=== PATIENT | male | born 1945 | race Caucasian/White ===

== ENCOUNTER → 2017-02-21 | Outpatient (CLI) | payer OTHER | END | disposition home or self-care (01) | LOC: C.LABMFLN 15:34 | PROVIDERS: ATTEND Family Medicine | DX: M81.0 Age-related osteoporosis without current pathological fracture (principal) ==

== ENCOUNTER → 2017-03-25 | Outpatient (CLI) | payer OTHER ==
[2017-03-25 18:14] LABS: HEMATOCRIT 29.1 % (42-52)
== END | disposition home or self-care (01) ==
LOC: C.LABMFLN 16:20
PROVIDERS: ATTEND Family Medicine
DX: D50.9 Iron deficiency anemia, unspecified (principal)

== ENCOUNTER → 2017-03-26 | Outpatient (CLI) | payer OTHER | END | disposition home or self-care (01) | LOC: C.LABMFLN 10:47 | PROVIDERS: ATTEND Family Medicine | DX: D50.9 Iron deficiency anemia, unspecified (principal) ==

== ENCOUNTER → 2017-04-09 | Outpatient (CLI) | payer OTHER ==
[2017-04-09 18:06] LABS: HEMATOCRIT 34.2 % (42-52)
[2017-04-09 18:31] LABS: ALT/SGPT 21 U/L (12-78); CHOLESTEROL 102 mg/dl (0-200); CHOLESTEROL/HDL RATIO 2.2; HDL CHOLESTEROL 47 mg/dl; TRIGLYCERIDES 57 mg/dl (0-150); VERY LOW DENSITY LIPOPROT CALC 11 mg/dl
== END | disposition home or self-care (01) ==
LOC: C.LABMFLN 15:31
PROVIDERS: ATTEND Family Medicine
DX: D64.9 Anemia, unspecified (principal); I25.10 Atherosclerotic heart disease of native coronary artery without angina pectoris

== ENCOUNTER → 2017-09-17 | Outpatient (CLI) | payer OTHER ==
[2017-09-17 17:59] LABS: HEMATOCRIT 40.3 % (42-52); HEMOGLOBIN 12.9 g/dL (14.0-18.0)
[2017-09-17 18:21] LABS: TRANSFERRIN 354 mg/dl (200-360)
== END | disposition home or self-care (01) ==
LOC: C.LABMFLN 15:31
PROVIDERS: ATTEND Family Medicine
DX: E55.9 Vitamin D deficiency, unspecified (principal); D64.9 Anemia, unspecified; R35.0 Frequency of micturition

== ENCOUNTER 2019-05-25 05:58 | Inpatient (IN) ==
--- NOTE | 2019-03-25 15:24 | Anesthesiology Consultation ---
Date of Service March 25, 2019 Assessment & Plan (1) Encounter for pre-operative examination: - Cardio: 03/30/19: "He is having no angina or heart failure symptoms. At this point time I see no cardiac contraindication for surgery." - Thoracic Medicine: 02/24/19: "Patient is breathing at baseline." Continue pulmonary rehab. Stable mediastinal lymphadenopathy. Continued on same regimen. F/U 8 months. - PCP: 03/23/19: He is an intermediate risk for pulmonary complications based on the ARISCAT preoperative pulmonary risk index. He is participating in pulmonary rehabilitation with improvement in functional status." Per verbal from PCP (RADHA Sorensen): 03/25/19: recommend cardiology and pulmonary clearance prior to surgery. Surgeon office aware/will postpone surgery until 04/27/19 so that these can be obtained. Chart Review Chart Review: Acceptable Risk for Surgery (pending PCP-ordered pulmonary/thoracic med clearance scheduled 04/07 ([facility])) and Patient NOT seen in Pre Admission Testing History Surgery Operation Date: 04/27/19 10:25 Proposed Procedures p C3-C5 Anterior Cervical Discetomy and Fusion, C6 Corpectomy, Spinal Cord Monitoring - Sunday Torres, DO Height/Weight Height: 5 ft 7 in Weight: 61.235 kg Allergies Allergy/AdvReac Type Severity Reaction Status Date / Time montelukast [From Singulair] Allergy GETS URI Verified 03/23/19 15:00 Medications Home Medications Medication Instructions Recorded Confirmed Last Taken hydroxyzine HCl 25 mg tablet 25 mg PO HS #30 tab 02/05/19 03/23/19 Unknown albuterol sulfate 2.5 mg/3 mL 2.5 mg INH Q4H PRN #180 ml 03/03/19 03/23/19 Unknown (0.083 %) solution for nebulization albuterol sulfate HFA 90 2 puffs INH Q6H PRN #18 gm 03/03/19 03/23/19 Unknown mcg/actuation aerosol inhaler budesonide-formoterol HFA 160 2 puffs INH BID #10.2 gm 03/03/19 03/23/19 Unknown mcg-4.5 mcg/actuation aerosol inhaler nitroglycerin 0.4 mg sublingual 0.4 mg SL Q5M PRN #25 tab 03/03/19 03/23/19 Unknown tablet aspirin [Adult Low Dose Aspirin] 81 mg PO QAM 03/23/19 03/23/19 Unknown atorvastatin 80 mg PO DAILY 03/23/19 03/23/19 Unknown meclizine 25 mg PO TID PRN 03/23/19 03/23/19 Unknown metoprolol succinate 25 mg PO QAM 03/23/19 03/23/19 Unknown omeprazole 40 mg PO QAM 03/23/19 03/23/19 Unknown umeclidinium [Incruse Ellipta] 1 puffs INH QAM 03/23/19 03/23/19 Unknown zafirlukast 20 mg PO BIDM 03/23/19 03/23/19 Unknown Past Medical History Medical History Chronic lymphocytic leukemia chronic leukocytosis (baseline WBC 20-30 range per chart review) Anemia chronic; baseline hgb 10-11 range per chart review Asthma CAD (coronary artery disease) stents x 2 (2017) Cervical disc disease Chronic obstructive pulmonary disease Emphysema of lung GERD (gastroesophageal reflux disease) History of GI bleed History of kidney stones Hx of myocardial infarction 2017- stents x 2 Hyperlipidemia Nocturnal hypoxemia 2L O2 HS Past Surgical History Surgical History History of cardiac cath 2017- stents x 2 History of carpal tunnel surgery of left wrist History of carpal tunnel surgery of right wrist History of colonoscopy History of dental surgery History of esophagogastroduodenoscopy (EGD) History of laparoscopic cholecystectomy History of thumb surgery History of umbilical hernia repair Hx of elbow surgery LEFT Social History Smoking Status: Former smoker Do You Dip or Chew Tobacco: Yes (1 CAN) Smoking End Date: 25 YR AGO Hx Alcohol Use: No Hx Substance Use: No Testing Laboratory Results 03/24/19 WBC 32.96 (hx CLL with chronic leukocytosis with baseline 20-30 range per chart review; surgeon aware) H/H 11.0/35.6 PLATELETS 222 SODIUM 141 POTASSIUM 4.3 CHLORIDE 102 CO2 28 BUN 12 CREATININE 1.2 GLUCOSE 94 PT 14.2 INR 1.10 UA small esterase, + WBC, negative bacteria Electrocardiogram Date: 03/24/19 NSR at 85bpm. LAD. iRBBB. No significant change compared to 03/2018 per cardio. Chest X-Ray Date: 03/24/19 Stigmata of severe COPD without acute findings. Echocardiogram Date: 03/06/17 LVEF 40-44%. Mild diffuse LV HK. Grade I DD. No significant valvular disease. Stress Test Date: 04/18/17 Type: nuclear (Lexiscan) EF 55% (post-stress). RCA territory infarct. Normal pharmacologic stress EKG. No noted stress induced ischemia. 69% MPHR. Cardiac Catheterization Date: 03/04/17 Successful PCI of the RCA using PTCA and RIAN. 70% LAD stenosis. LVEF 30%.
[~2019-05-25 05:58] MED LIST: CEFAZOLIN 1000MG 1,000 MG/7.5 ML SYR IV SCH; LR 15ML/HR IV SCH; SODIUM CHLORIDE 0.9% 250 ML IV PRN
[2019-05-25] MEDS ORDERED: LR 15ML/HR IV SCH (06:00)
[2019-05-25] MEDS ORDERED: CEFAZOLIN 1000MG 1,000 MG/7.5 ML SYR IV SCH (06:00)
[2019-05-25] MEDS ORDERED: BACITRACIN INJ 50,000 UNIT VIAL ONE (06:57)
[2019-05-25] MEDS ORDERED: ATROPINE SULFATE 0.1 MG/ML 10ML SYR IV PRN ×2 (07:02→07:39)
[2019-05-25] MEDS ORDERED: ONDANSETRON INJ 2 MG/ML 2 ML VIAL IV PRN ×3 (07:02→11:53)
[2019-05-25] MEDS ORDERED: fentaNYL citrate 100 MCG/2 ML VIAL IV PRN ×2 (07:02→07:39)
[2019-05-25] MEDS ORDERED: ePHEDrine sulfate 50 MG/ML AMP IV PRN ×2 (07:02→07:39)
[2019-05-25] MEDS ORDERED: HYDROmorphone INJ 1 MG/ML SYRINGE IV PRN ×2 (07:02→07:39)
[2019-05-25] MEDS ORDERED: ALBUT/IPRATROP 3MG/0.5MG NEB 3 ML VIAL INH STA (07:06)
[2019-05-25] MEDS ORDERED: MIDAZOLAM HCL 1 MG/ML 2ML VIAL ONE (07:22)
[2019-05-25] MEDS ORDERED: SUCCINYLCHOLINE CHLORIDE 20 MG/ML 10 ML VIAL ONE (07:22)
[2019-05-25] MEDS ORDERED: ePHEDrine sulfate 50 MG/ML AMP ONE (07:22)
[2019-05-25] MEDS ORDERED: LIDOCAINE HCL 2% 2 ML VIAL/AMP(20MG/ML) INFIL ONE (07:22)
[2019-05-25] MEDS ORDERED: PROPOFOL IV EMULSION 10 MG/ML 20 ML VIAL IV ONE (07:22)
[2019-05-25] MEDS ORDERED: GLYCOPYRROLATE 0.2 MG/ML VIAL ONE (07:22)
[2019-05-25] MEDS ORDERED: DEXAMETHASONE SOD INJ 4 MG/ML VIAL ONE (07:22)
[2019-05-25] MEDS ORDERED: PHENYLEPHRINE HCL 10 MG/ML VIAL ONE (07:22)
[2019-05-25] MEDS ORDERED: ONDANSETRON INJ 2 MG/ML 2 ML VIAL ONE (07:22)
[2019-05-25] MEDS ORDERED: fentaNYL citrate 100 MCG/2 ML VIAL ONE (07:22)
[2019-05-25] MEDS ORDERED: NEOSTIGMINE METHYLSULFATE 1 MG/ML 10ML VIAL ONE (07:22)
--- NOTE | 2019-05-25 07:30 | History & Physical Bridge Note ---
Date of Service May 25, 2019 History & Physical Bridge Note I have examined the patient, reviewed the History & Physical and in the interval since the performance of the History & Physical I have noted the following changes of clinical significance: no changes noted
--- NOTE | 2019-05-25 07:31 | History & Physical Report ---
Date of Service May 25, 2019 Assessment & Plan (1) Cervical stenosis of spinal canal: Anterior cervical discectomy and fusion C3-C5 with C6 corpectomy Present on Admission?: Yes History of Present Illness Chief Complaint: Neck and arm pain Primary Care Provider: Bjorn Sutherland MD This is a 73-year-old male who presents with chronic persistent neck and arm pain. After failing extensive course of nonoperative care is here for surgical intervention. Allergies Allergy/AdvReac Type Severity Reaction Status Date / Time montelukast [From Singulair] Allergy GETS URI Verified 05/25/19 06:34 Home Medications Home Medications Medication Instructions Recorded Confirmed Type hydroxyzine HCl 25 mg tablet 25 mg PO HS #30 tab 02/05/19 05/25/19 Rx albuterol sulfate 2.5 mg/3 mL 2.5 mg INH Q4H PRN #180 ml 03/03/19 05/25/19 Rx (0.083 %) solution for nebulization budesonide-formoterol HFA 160 2 puffs INH BID #10.2 gm 03/03/19 05/25/19 Rx mcg-4.5 mcg/actuation aerosol inhaler nitroglycerin 0.4 mg sublingual 0.4 mg SL Q5M PRN #25 tab 03/03/19 05/25/19 Rx tablet aspirin [Adult Low Dose Aspirin] 81 mg PO QAM 03/23/19 05/25/19 History atorvastatin 80 mg PO DAILY 03/23/19 05/25/19 History meclizine 25 mg PO TID PRN 03/23/19 05/25/19 History metoprolol succinate 25 mg PO QAM 03/23/19 05/25/19 History umeclidinium [Incruse Ellipta] 1 puffs INH QAM 03/23/19 05/25/19 History zafirlukast [Accolate] 20 mg PO BIDM 03/23/19 05/25/19 History benzonatate 100 mg capsule 100 mg PO TID PRN #30 cap 05/18/19 05/25/19 Rx omeprazole 40 mg capsule,delayed 40 mg PO QAM 05/20/19 05/25/19 History release albuterol sulfate [Ventolin HFA] 2 puff INHALATION Q4H PRN 05/21/19 05/25/19 History azithromycin [Zithromax Z-Jose] 250 mg PO UD 05/21/19 05/25/19 History prednisone 10 mg tablet 10 mg PO DAILY #14 tab 05/21/19 05/25/19 Rx Past Med/Surg History Social History Preferred Language: Tuvaluan Communication Ability: Effective Developmental Education Instructor Required: No Beliefs That Will Affect Care: None Current Living Situation: Family Feels Safe at Home: Yes Safety Concerns: Feels Safe At This Time Smoking Status: Former smoker Do You Dip or Chew Tobacco: Yes (1 CAN) ; Smoking End Date: 25 YR AGO ; Second Hand Exposure: Yes (DAILY) ; Tobacco Cessation Education Requested by Patient: No Hx Alcohol Use: No Hx Substance Use: No Physical Exam Physical Exam: Patient is alert and oriented neurologically intact. Results & Data Vital Signs (Past 12 Hours) Vital Signs Temp Pulse Resp BP Pulse Ox 05/25/19 06:41 37 C 75 20 134/84 100
[2019-05-25] MEDS ORDERED: LABETALOL HCL IV 5 MG/ML 20ML IV PRN (07:39)
[2019-05-25] MEDS ORDERED: ALBUT/IPRATROP 3MG/0.5MG NEB 3 ML VIAL INH PRN (07:39)
[2019-05-25] MEDS ORDERED: HYDROmorphone INJ 2 MG/ML SYR/VIAL ONE (08:46)
[2019-05-25] MEDS ORDERED: FLOSEAL HEMOSTATIC MATRIX 10ML TOP ONE (08:49)
--- NOTE | 2019-05-25 10:00 | Operative Report ---
Post Operative Report Pre & Post Diagnosis Operation Date: 05/25/19 07:45 Pre-Op Diagnosis: Cervical spinal stenosis with myeloradiculopathy Post-Op Diagnosis: Same Procedure Operation Date: 05/25/19 07:45 Actual Procedures #1 anterior cervical discectomy with bilateral foraminotomies C3-4. #2 anterior cervical corpectomy with bilateral foraminotomies see 5. #3 anterior cervical arthrodesis C3-C4 and C4-C6. #4 placement of peek cage 7 mm in height C3-C4 and 25 mm in height at C4-C6 #5 placement of cornelius plate and screws from C3 to see 6. #6 placement of locally harvested morselized autograft combined with DBM and interbody cages. Surgeon Sunday Torres DO Vulcanizing Press Operator Sabrina Galindo Estimated Blood Loss 10 Findings Consistent with Post-Op Diagnosis Specimens None Indications This is a 73-year-old male who has presented with significant cervical spinal stenosis and after failing extensive course of nonoperative care elected to undergo the above-mentioned procedure. Description of Procedure Patient was met with identified and informed consent obtained. Patient was then taken to the operative suite underwent intubation placed in supine position on the Nicolas table with head Desai hogshead opener. All bony prominences well- padded eyes inspected to ensure no external pressure placed upon the peer at this point the anterior cervical spine was prepped and draped in normal sterile fashion. With the assistance of fluoroscopy identified the C3 to see 6 disc space and a longitudinal incision was placed along the right anterior aspect of the cervical spine. Sharp dissection with the assistance of bipolar electrocautery was performed down to and exposing the anterior cervical spine f rom C3-C6. Then performed a complete discectomy of C4-5 out to the uncovertebral joints bilaterally followed by C5-6. [place] distracting pins were then placed in C4 and C6 to distract across the C5 vertebral body. A complete corpectomy of C5 was then performed including removal of all posterior annular fibers longitudinal ligament and spurs. The endplates were then burred to subcortical being bone and a 25 mm peek cage filled with locally harvested morselized autograft combined with DBM was tapped in position. Then proceeded to see 3 4. Again complete discectomy performed out to the operative joints bilaterally. I removed all posterior annular fibers and longitudinal ligament. Endplates were then burred to subcortical bleeding bone and a 7 mm peek cage filled with ostium bone graft tapped in position. All distraction apparatus was removed and anterior osteophytes burred with smooth cortical surface. A cornelius plate and screws was then applied with the assistance of fluoroscopy. The incision was then copiously irrigated explored to ensure no damage to surrounding structures remaining bleeding. 10 round ALAN drain inserted. The incision was then closed with 2 Vicryl in the fashion of 4 Monocryl for final skin closure. Steri-Strip sterile dressings placed. Patient will continue to PACU stable condition. Please note Sabrina Galindo present all the entire procedure involved the patient positioning complex portions of the surgery and final skin closure. Lastly spinal cord monitoring was utilized that the procedure no changes noted. I attest to the content of the Intraoperative Record and any orders documented therein. Any exceptions are noted below.
--- NOTE | 2019-05-25 10:37 | Fluoroscopy Report ---
FL cervical 2-3V CLINICAL HISTORY: C3-C5 FUSION, C6 CORPECTOMY COMPARISON STUDY: None FLUOROSCOPY TIME: 12 seconds. NUMBER OF FLUOROSCOPIC IMAGES: 2 FINDINGS: 2 intraoperative fluoroscopic spot images are provided for interpretation. There are postsu rgical changes of a C3-4 discectomy and interbody fusion. There are postsurgical changes of a C5-6 co rpectomy. There is anterior metallic plate extending from the C3 to the C7 level with screws at the C 3, C4, and C7 levels. IMPRESSION: Intraoperative fluoroscopic spot images as described above. Electronically signed by: Jayden Harding M.D. 05/25/2019 10:35 AM
[2019-05-25] MEDS ORDERED: RACEPINEPHRINE 2.25% NEBU SOLN 0.5 ML VIAL INH PRN (11:53)
[2019-05-25] MEDS ORDERED: BENZONATATE 100 MG CAPSULE PO PRN (11:53)
[2019-05-25] MEDS ORDERED: ACETAMINOPHEN 1,000 MG/100 ML VIAL IV PRN (11:53)
[2019-05-25] MEDS ORDERED: NALOXONE HCL 0.4 MG/1 ML VIAL/CARP IV PRN (11:53)
[2019-05-25] MEDS ORDERED: NITROGLYCERIN SL 0.4 MG/TAB TAB SL PRN (11:53)
[2019-05-25] MEDS ORDERED: MAGNESIUM HYDROXIDE SUSP 30 ML UDC PO PRN (11:53)
[2019-05-25] MEDS ORDERED: PROMETHAZINE HCL 12.5 MG in SODIUM CHLORIDE 0.9% 50 ML IV PRN (11:53)
[2019-05-25] MEDS ORDERED: FAMOTIDINE 20 MG TAB PO PRN (11:53)
[2019-05-25] MEDS ORDERED: ALUMINUM/MAGNESIUM SUSP 30 ML UDC PO PRN (11:53)
[2019-05-25] MEDS ORDERED: LORazepam 0.5 MG/1 ML VIAL IV PRN (11:53)
[2019-05-25] MEDS ORDERED: LORazepam 0.5 MG TAB PO PRN (11:53)
[2019-05-25] MEDS ORDERED: TRAMADOL HCL 50 MG TABLET PO PRN (11:53)
[2019-05-25] MEDS ORDERED: ALBUTEROL 0.083% NEBU SOLN 3 ML VIAL INH PRN (11:53)
[2019-05-25] MEDS ORDERED: DEXAMETHASONE SOD PHOSPHATE 8 MG in SYRINGE 0 ML IV PRN (11:53)
[2019-05-25] MEDS ORDERED: OXYCODONE HCL IR 5 MG TAB (IMMEDIATE RELEASE) PO PRN (11:53)
[2019-05-25] MEDS ORDERED: ONDANSETRON 4 MG TAB PO PRN (11:53)
[2019-05-25] MEDS ORDERED: ACETAMINOPHEN 500 MG TAB PO PRN (11:53)
[2019-05-25] MEDS ORDERED: METOCLOPRAMIDE HCL INJ 5 MG/ML 2 ML VIAL IV PRN (11:53)
[2019-05-25] MEDS ORDERED: SOD PHOSPHATE/SOD BIPHOSPHATE ENEMA 132 ML BTL PR PRN (11:53)
[2019-05-25] MEDS ORDERED: HYDROmorphone INJ 0.5 MG/0.5 ML SYR IV PRN (11:53)
[2019-05-25] MEDS ORDERED: ALBUTEROL HFA 8 GM INHALER INH PRN (11:53)
[2019-05-25] MEDS ORDERED: DO NOT ADMINISTER FLU VACCINE PRN (11:53)
[2019-05-25] MEDS ORDERED: DO NOT ADMINISTER PNEUMOCOCCAL VACCINE PRN (11:53)
[2019-05-25] MEDS ORDERED: MECLIZINE HCL 25 MG TAB PO PRN (11:53)
[2019-05-25] MEDS ORDERED: ALBUT/IPRATROP 3MG/0.5MG NEB 3 ML VIAL INH ONE (12:30)
--- NOTE | 2019-05-25 14:31 | Anesthesiology Progress Note ---
Date of Service May 25, 2019 Anesthesia Post Procedure Vital Signs Vital Signs: Temp Pulse Pulse Pulse Resp BP Pulse Ox 05/25/19 14:19 80 16 129/76 98 05/25/19 13:48 70 18 95 05/25/19 13:35 36.7 C 68 16 122/76 92 05/25/19 12:43 85 16 130/69 95 05/25/19 12:36 68 18 129/70 96 05/25/19 12:15 83 18 97 05/25/19 12:12 73 18 132/72 97 05/25/19 12:10 73 18 132/72 97 05/25/19 11:40 36.7 C 78 14 129/74 95 05/25/19 11:10 36.7 C 75 12 132/78 94 05/25/19 11:00 75 12 134/75 95 05/25/19 10:50 80 12 132/74 96 05/25/19 10:40 79 12 134/74 100 05/25/19 10:30 74 12 136/69 100 05/25/19 10:20 74 16 127/64 100 05/25/19 10:13 36.0 C L 83 18 139/66 100 05/25/19 07:40 73 16 93 05/25/19 06:41 37 C 75 20 134/84 100 Pulse Ox 05/25/19 14:19 05/25/19 13:48 05/25/19 13:35 05/25/19 12:43 05/25/19 12:36 05/25/19 12:15 05/25/19 12:12 05/25/19 12:10 05/25/19 11:40 95 05/25/19 11:10 05/25/19 11:00 05/25/19 10:50 05/25/19 10:40 05/25/19 10:30 05/25/19 10:20 05/25/19 10:13 05/25/19 07:40 05/25/19 06:41 Pain Intensity Neck: Pain Intensity: 3 Transfer of Care Handoff Completed per policy Notes Mental Status: alert / awake / arousable and participated in evaluation Patient Amnestic to Procedure: Yes Nausea / Vomiting: adequately controlled Pain: adequately controlled Airway Patency, RR, SpO2: stable & adequate BP & HR: stable & adequate Hydration State: stable & adequate Anesthetic Complications: no major complications apparent and Pt Satisfied with anesthetic care
[2019-05-25] MEDS: DEXAMETHASONE SOD PHOSPHATE 6 MG in SYRINGE 0 ML IV SCH ×2 (15:37→23:54)
[2019-05-25] MEDS: CEFAZOLIN 1000MG 1,000 MG/7.5 ML SYR IV SCH ×2 (15:37→23:53)
[2019-05-25] MEDS: SODIUM CHLORIDE 0.9% 1000ML 1,000 ML IV SCH (16:44)
[2019-05-25] MEDS: BUDESONIDE/FORMOTEROL FUMARATE 160/4.5 60 PUFFS/INHALER INH SCH (20:38)
[2019-05-25] MEDS ORDERED: DOCUSATE SODIUM/SENNA 50/8.6MG TAB PO SCH (21:00)
--- NOTE | 2019-05-25 21:59 | Hospitalist Consultation ---
Date of Consultation May 25, 2019 Assessment & Plan (1) Cervical stenosis of spinal canal: s/p C3-C6 anterior cervical diskectomy and fusion performed by Dr. Torres today. Surgery was well tolerated, no complications identified. Patient is feeling well. Pain fairly well controlled. No nausea. Neurovascularly intact with c-collar in place. -Pain, nausea and bowel regimen per primary team -Dexamethasone -Cefazolin -Activity instruction per primary team. Present on Admission?: Yes (2) Pulmonary emphysema: Adequate oxygenation on room air. No respiratory distress, coughing or wheezing. Lungs CTA. -Prednisone 10mg po daily -Continue Albuterol PRN - will change to nebulized formulation while inpatient -Continue Symbicort (Budesonide/Formoterol) 2 puffs BID -Continue Benzonatate TID PRN -DuoNeb q 4 hours PRN Present on Admission?: Yes (3) Chronic lymphocytic leukemia: Chronic. Stable. Baseline WBC 20-30 -Labs in AM Present on Admission?: Yes (4) Anemia: Chronic. Stable. Minimal blood loss during operation -CBC in AM Present on Admission?: Yes (5) Acid reflux disease: Chronic. Stable. Patient with no complaints at present. -Protonix 40mg po daily -Pepcid 20mg po BID Present on Admission?: Yes (6) CAD (coronary artery disease): Chronic. Stable. No complaints of chest pain. -Nitro PRN -Metoprolol 25mg po q AM -Continue Atorvastatin 80mg po daiy -Continue ASA 81mg po daily at discretion of primary team Thank you for this consult. Please do not hesitate to contact us with additional questions or concerns Hospitalist team will continue to follow along with you. Present on Admission?: Yes History of Present Illness Reason for Consultation: post-operative medical management Requesting Physician: Dr. Torres Attending Physician: Sunday Torres, DO History of Present Illness Mr. Prince is a pleasant 73yo C male with history of COPD/Emphysema, CAD s/p [place], GERD, CLL s/p C3-C6 anterior cervical diskectomy and fusion perfomed by Dr. Torres today. Surgery was well tolerated, no complications identified. Patient presently in mild pain. Denies nausea, numbness, tingling or weakness. He ate liquid dinner without complication. Some mild discomfort with swallowing. Denies CP, SOB, cough or wheeze. No additional complaints at this time Allergies Allergy/AdvReac Type Severity Reaction Status Date / Time montelukast [From [facility]] Allergy GETS URI Verified 05/25/19 06:34 Home Medications Home Medications Medication Instructions Recorded Confirmed Type hydroxyzine HCl 25 mg tablet 25 mg PO HS #30 tab 02/05/19 05/25/19 Rx albuterol sulfate 2.5 mg/3 mL 2.5 mg INH Q4H PRN #180 ml 03/03/19 05/25/19 Rx (0.083 %) solution for nebulization budesonide-formoterol HFA 160 2 puffs INH BID #10.2 gm 03/03/19 05/25/19 Rx mcg-4.5 mcg/actuation aerosol inhaler nitroglycerin 0.4 mg sublingual 0.4 mg SL Q5M PRN #25 tab 03/03/19 05/25/19 Rx tablet aspirin [Adult Low Dose Aspirin] 81 mg PO QAM 03/23/19 05/25/19 History atorvastatin 80 mg PO DAILY 03/23/19 05/25/19 History meclizine 25 mg PO TID PRN 03/23/19 05/25/19 History metoprolol succinate 25 mg PO QAM 03/23/19 05/25/19 History umeclidinium [Incruse Ellipta] 1 puffs INH QAM 03/23/19 05/25/19 History zafirlukast [Accolate] 20 mg PO BIDM 03/23/19 05/25/19 History benzonatate 100 mg capsule 100 mg PO TID PRN #30 cap 05/18/19 05/25/19 Rx omeprazole 40 mg capsule,delayed 40 mg PO QAM 05/20/19 05/25/19 History release albuterol sulfate [Ventolin HFA] 2 puff INHALATION Q4H PRN 05/21/19 05/25/19 History azithromycin [Zithromax Z-Jose] 250 mg PO UD 05/21/19 05/25/19 History prednisone 10 mg tablet 10 mg PO DAILY #14 tab 05/21/19 05/25/19 Rx oxycodone 5 mg PO Q4H PRN #20 tab 05/25/19 Rx tramadol 50 mg PO Q4H PRN #20 tab 05/25/19 Rx Patient History Social History Preferred Language: Occitan Communication Ability: Effective Planograph Operator Required: No Beliefs That Will Affect Care: None Current Living Situation: Family Feels Safe at Home: Yes Safety Concerns: Feels Safe At This Time Smoking Status: Former smoker Do You Dip or Chew Tobacco: Yes (1 CAN) ; Smoking End Date: 25 YR AGO ; Second Hand Exposure: Yes (DAILY) ; Tobacco Cessation Education Requested by Patient: No Hx Alcohol Use: No Hx Substance Use: No Review of Systems Review of Systems: All systems reviewed & are unremarkable except as noted in HPI & below Physical Exam Physical Exam: General: patient resting comfortably, NAD, non-toxic in ap pearance, AA&O x 4 Skin: warm, dry, no rashes or lesions HEENT: NC/AT, PERRL, EOMI, anicteric sclera, conjunctiva without injection, external ear normal to inspection and nontender, nares patent, moist mucus membranes, dentition intact, no oropharyngeal lesions, neck supple, trachea midline, no LAD, no thyromegaly, no JVD Heart: +S1/S2, regular, no m/r/g Lungs: equal air entry bilaterally, no rales/rhonchi/wheezes Abd: +BS, soft, NT/ND, no masses/organomegaly/ascites Ext: warm, 2+ pulses in UE/LE bilaterally, no clubbing/cyanosis or edema Neuro: nonfocal, patient AA&O x 4, speech intact, no facial droop, moving all extremities on command with equal strength 5/5 Results & Data Vital Signs (Past 12 Hours) Vital Signs Temp Pulse Pulse Resp BP Pulse Ox Pulse Ox 05/25/19 20:34 36.4 C L 58 L 16 137/72 98 05/25/19 19:30 72 18 98 05/25/19 18:32 77 16 126/63 96 94 05/25/19 16:40 77 16 129/71 93 05/25/19 15:50 68 18 93 05/25/19 14:19 80 16 129/76 98 05/25/19 13:48 70 18 95 05/25/19 13:35 36.7 C 68 16 122/76 92 05/25/19 12:43 85 16 130/69 95 05/25/19 12:36 68 18 129/70 96 05/25/19 12:15 83 18 97 05/25/19 12:12 73 18 132/72 97 05/25/19 12:10 73 18 132/72 97 05/25/19 11:40 36.7 C 78 14 129/74 95 95 05/25/19 11:10 36.7 C 75 12 132/78 94 05/25/19 11:00 75 12 134/75 95 05/25/19 10:50 80 12 132/74 96 05/25/19 10:40 79 12 134/74 100 05/25/19 10:30 74 12 136/69 100 05/25/19 10:20 74 16 127/64 100 05/25/19 10:13 36.0 C L 83 18 139/66 100 Laboratory Results Lab Results 05/25/19 Range/Units 06:57 Blood Type O Negative Antibody Screen NEGATIVE Crossmatch See Detail Diagnostic Findings [place] cervical 2-3V CLINICAL HISTORY: C3-C5 FUSION, C6 CORPECTOMY COMPARISON STUDY: None FLUOROSCOPY TIME: 12 seconds. NUMBER OF FLUOROSCOPIC IMAGES: 2 FINDINGS: 2 intraoperative fluoroscopic spot images are provided for interpretation. There are postsurgical changes of a C3-4 discectomy and interbody fusion. There are postsurgical changes of a C5-6 corpectomy. There is anterior metallic plate extending from the C3 to the C7 level with screws at the C3, C4, and C7 levels. IMPRESSION: Intraoperative fluoroscopic spot images as described above. Electronically signed by: Jayden Harding M.D. 05/25/2019 10:35 AM Dictated: 05/25/19 1031 Transcribed: 05/25/19 1031 PG Care Time/CCT Total # of Minutes Spent Total Time Spent with Patient: Total time spent is greater than 50% in coordination of care (as documented) at patient's floor/unit and/or counseling patient: (1) Pulmonary emphysema Emphysema type: unspecified Qualified Code(s): J43.9 - Emphysema, unspecified (2) Anemia Anemia type: other cause (3) Acid reflux disease Esophagitis presence: esophagitis presence not specified Qualified Code(s): K21.9 - Gastro-esophageal reflux disease without esophagitis
[2019-05-26] MEDS: SODIUM CHLORIDE 0.9% 1000ML 1,000 ML IV SCH (03:08)
[2019-05-26 06:15] LABS: Hematocrit (blood only) 33.6 % (42-52); Hemoglobin 10.7 g/dL (14.0-18.0); Mean Corpuscular Hgb Conc 31.8 g/dL (32-36); Mean Corpuscular Volume 81.6 fL (80-100); Mean Platelet Volume 8.4 fL (7.4-10.4); Platelet Count 250 K/uL (130-400); RDW Coefficient of Variation 16.8 % (11.5-14.5); RDW Standard Deviation 49.7 fL (36.4-46.3); Red Blood Count 4.12 M/uL (4.7-6.1); White Blood Count 43.84 K/uL (4.8-10.8)
[2019-05-26 06:31] LABS: Basophils # (auto) 0.04 K/uL (0-0.2); Basophils % (auto) 0.1 %; Immature Granulocytes # (auto) 0.27 K/uL (0.00-0.02); Immature Granulocytes % (auto) 0.6 %; Lymphocytes # (auto) 25.32 K/uL (1.2-3.4); Lymphocytes % (auto) 57.8 %; Monocytes # (auto) 1.82 K/uL (0.11-0.59); Monocytes % (auto) 4.2 %; Neutrophils # (auto) 16.39 K/uL (1.4-6.5); Neutrophils % (auto) 37.3 %
[2019-05-26 06:44] LABS: BUN Creatinine Ratio 11.5 (10-20); Calcium 8.4 mg/dl (8.5-10.1); Creatinine Clr Calc Pharmacy 71.4 ml/min; Est GFR (African American) 102.6; Est GFR (Non-African American) 88.5; Potassium 4.2 mmol/L (3.5-5.1)
[2019-05-26] MEDS: DEXAMETHASONE SOD PHOSPHATE 6 MG in SYRINGE 0 ML IV SCH (07:02)
[2019-05-26] MEDS: ALBUT/IPRATROP 3MG/0.5MG NEB 3 ML VIAL NEB PRN ×2 (07:25→11:08)
--- NOTE | 2019-05-26 08:18 | Anesthesiology Progress Note ---
Date of Service May 26, 2019 Anesthesia Post Procedure Vital Signs Vital Signs: Temp Pulse Pulse Resp BP Pulse Ox Pulse Ox 05/26/19 07:27 63 20 89 L 05/26/19 07:11 92 05/26/19 06:50 60 16 93 05/26/19 06:35 36.8 C 76 16 133/74 95 05/26/19 04:40 36.4 C L 66 16 133/75 96 05/26/19 03:42 60 16 95 05/26/19 02:40 36.6 C 69 16 123/77 97 05/26/19 00:40 36.6 C 72 16 123/71 96 05/25/19 23:05 64 18 96 05/25/19 22:40 36.6 C 69 16 121/74 95 05/25/19 20:34 36.4 C L 58 L 16 137/72 98 05/25/19 19:30 72 18 98 05/25/19 18:32 77 16 126/63 96 94 05/25/19 16:40 77 16 129/71 93 05/25/19 15:50 68 18 93 05/25/19 14:19 80 16 129/76 98 05/25/19 13:48 70 18 95 05/25/19 13:35 36.7 C 68 16 122/76 92 05/25/19 12:43 85 16 130/69 95 05/25/19 12:36 68 18 129/70 96 05/25/19 12:15 83 18 97 05/25/19 12:12 73 18 132/72 97 05/25/19 12:10 73 18 132/72 97 05/25/19 11:40 36.7 C 78 14 129/74 95 95 05/25/19 11:10 36.7 C 75 12 132/78 94 05/25/19 11:00 75 12 134/75 95 05/25/19 10:50 80 12 132/74 96 05/25/19 10:40 79 12 134/74 100 05/25/19 10:30 74 12 136/69 100 05/25/19 10:20 74 16 127/64 100 05/25/19 10:13 36.0 C L 83 18 139/66 100 Pain Intensity Neck: Pain Intensity: 4 Notes Mental Status: alert / awake / arousable and participated in evaluation Patient Amnestic to Procedure: Yes Nausea / Vomiting: adequately controlled Pain: adequately controlled Airway Patency, RR, SpO2: stable & adequate BP & HR: stable & adequate Hydration State: stable & adequate Anesthetic Complications: no major complications apparent and Pt Satisfied with anesthetic care
[2019-05-26] MEDS: BUDESONIDE/FORMOTEROL FUMARATE 160/4.5 60 PUFFS/INHALER INH SCH (08:24)
[2019-05-26] MEDS ORDERED: ATORVASTATIN 40 MG TAB PO SCH (09:00)
[2019-05-26] MEDS ORDERED: ASPIRIN 81 MG ECTAB PO SCH (09:00)
[2019-05-26] MEDS ORDERED: METOPROLOL SUCC 25MG EXT REL TAB PO SCH (09:00)
[2019-05-26] MEDS ORDERED: predniSONE 10 MG TABLET PO SCH (09:00)
[2019-05-26] MEDS ORDERED: PANTOprazole 40 MG TAB PO SCH (09:00)
--- NOTE | 2019-05-26 10:37 | Discharge Summary ---
Date of Service May 26, 2019 Admission HPI Per Admitting Provider This is a 73-year-old male who presents with chronic persistent neck and arm pain. After failing extensive course of nonoperative care is here for surgical intervention. Principal Diagnosis Cervical spinal stenosis with myeloradiculopathy Discharge Data Allergies Allergy/AdvReac Type Severity Reaction Status Date / Time montelukast [From Singulair] Allergy GETS URI Verified 05/25/19 06:34 Consultations 05/25/19 11:53 Consult Hospitalist Routine Procedures Performed Operation Date: 05/25/19 07:45 Actual Procedures p C3-C6 Anterior Cervical Discetomy and Fusion, C5 Corpectomy, Spinal Cord Monitoring(Not Applicable) - Sunday Torres DO Ordered Studies 05/25/19 07:45 FL cervical 2-3V Routine FL fluoroscopy <1hr Routine Hospital Course (1) Cervical stenosis of spinal canal: Patient underwent anterior cervical corpectomy and ACDF. Tolerated this well was taken to orthopedic for postoperative postop day #1 his neck and arm symptoms were improved. He is swallowing well. No hoarseness. Good strength testing. Subsequently discharged home. Discharge orders instructions from the chart for further review. Total Time Total Time Spent Total Time Spent (In Minutes): 20 minutes Discharge Plan Discharge Items Patient Disposition: Home - Self-Care Reason For Visit: CERVICAL SPINAL STENOSIS Discharge Diagnosis: Cervical spinal stenosis with myeloradiculopathy Activity: Per Instructions section Non-emergency contact: Primary Care Provider Call non-emergency contact if: you have any medication questions Follow-up/Referrals: Bjorn Sutherland MD [Primary Care Provider] - Diet: Regular Addtl Attending Provider Instructions: ACTIVITY RECOMMENDATIONS: SELF CARE INSTRUCTIONS AFTER CERVICAL FUSIONS 1. No smoking. Smoking drastically decreases the chance of a solid fusion. 2. No bending, lifting more than 5 pounds, or twisting (roll like a log when turning in bed). 3. You may shower 3 days after surgery. Thoroughly dry wound. Do not soak in the tub. 4. Cervical collar: Must be worn at all times including sleeping. You may remove the brace only to bath, eat and if you are sitting in a recliner. 5. Please walk as much as you can for exercise. Gradually increase the distance that you walk as your endurance increases. SPECIAL CARE INSTRUCTIONS: VERY IMPORTANT TO READ AND REVIEW A. Do not take any anti-inflammatory medications (i.e. Indocin, Advil, Aspirin, Naprosyn, Aleve, Motrin, etc.) as these may inhibit the chance of a solid fusion. Tylenol is okay to take. B. Your surgical incision has been closed with a cosmetic suture under the skin that will dissolve in about 6 weeks. In 14 days, you can use a pair of clean scissors and cut the suture that is left outside of the skin at the ends of your incision. C. Complications are uncommon, but please contact us if you have any signs or symptoms of: 1. wound infection (fever higher than 102.5 degrees F, redness, separation of wound, drainage, or increasing pain from the incision) 2. blood clots in legs (pain, swelling, redness and warmth in legs) 3. urinary tract infection (fever higher than 102.5 degrees, burning upon urination or increased frequency of urination) 4. nerve problems (inability to walk on your toes or heels, numbness, loss of bowel or bladder control) 5. any other symptoms that concern you. D. Please call the office at if you have any concerns or questions about your operation or recovery. MANAGING PAIN AFTER SPINAL SURGERY 1. Narcotic medication is intended for short-term use and will be provided for surgical pain. Surgical pain usually lasts for a period of 4-6 weeks. Narcotic medication includes Percocet, Vicodin, Darvocet, Tylenol #3 or Lortab. 2. Longer-term pain is more appropriately treated with non-narcotic medication such as Tylenol ES. 3. Muscle spasm is not appropriately treated with narcotics. Muscle relaxers such as Soma, Flexeril or Skelaxin can be used along with Tylenol ES. 4. Remember that we all live with some "aches and pains". This is not unusual or uncommon after an injury or as we get older. 5. We will provide appropriate medication within the normal guidelines of their prescribed use. We will also be very cautious and aware of potential abuse and extended duration of patients' medication needs. 6. Please allow 2-3 days to process refills. Prescriptions will not be mailed but must be picked up at the office. FOLLOW UP VISIT: Keep your scheduled follow-up appointment. Any questions, please call the office at . Pending Studies at Discharge: No Stand-Alone Forms: [facility] Medications and DC Order Prescriptions: New oxycodone 5 mg Tablet 5 mg PO Q4H PRN (Reason: pain) Qty: 20 RF: 0 Continued hydroxyzine HCl 25 mg tablet 25 mg PO HS Qty: 30 RF: 5 albuterol sulfate 2.5 mg /3 mL (0.083 %) solution for nebulization 2.5 mg INH Q4H PRN (Reason: shortness of breath or wheezing) Qty: 180 RF: 0 nitroglycerin 0.4 mg tablet, sublingual 0.4 mg SL Q5M PRN (Reason: chest pain) Qty: 25 RF: 0 Symbicort 160-4.5 mcg/actuation HFA aerosol inhaler 2 puffs INH BID Qty: 10.2 RF: 3 ipratropium-albuterol 0.5 mg-3 mg(2.5 mg base)/3 mL solution for nebulization 3 ml inhalation ONCE Qty: 3 RF: 0 benzonatate [Tessalon Perles] 100 mg capsule 100 mg PO TID PRN (Reason: cough) Qty: 30 RF: 0 prednisone 10 mg tablet 10 mg PO DAILY Qty: 14 RF: 0 atorvastatin 80 mg Tablet 80 mg PO DAILY RF: 0 aspirin [Adult Low Dose Aspirin] 81 mg tablet,delayed release (DR/EC) 81 mg PO QAM RF: 0 meclizine 25 mg tablet 25 mg PO TID PRN (Reason: Vertigo) RF: 0 zafirlukast [Accolate] 20 mg tablet 20 mg PO BIDM RF: 0 metoprolol succinate 25 mg tablet extended release 24 hr 25 mg PO QAM RF: 0 Incruse Ellipta 62.5 mcg/actuation blister with device 1 puffs INH QAM RF: 0 omeprazole 40 mg capsule,delayed release(DR/EC) 40 mg PO QAM RF: 0 azithromycin [Zithromax Z-Jose] 250 mg Tablet 250 mg PO UD RF: 0 albuterol sulfate [Ventolin HFA] 90 mcg/actuation HFA aerosol inhaler 2 puff inhalation Q4H PRN (Reason: Wheezing) RF: 0 Discharge Orders: Discharge Order (Routine); Ordered 05/26/19 Ordered By: Sunday Torres Admission Data Admit Date/Time: 05/25/19 10:07 Attending Provider: Sunday Torres Admit Provider: Sunday Torres Primary Care Provider: Bjorn Sutherland Other Providers: Kulwant Johnson
--- NOTE | 2019-05-26 11:39 | Hospitalist Progress Note ---
Date of Service May 26, 2019 Assessment & Plan (1) Cervical stenosis of spinal canal: - S/p C3-C6 anterior cervical diskectomy and fusion performed by Dr. Torres. - Pain control per primary team. - Bowel regimen: Senokot S 2 tab qhs, Miralax q6hr scheduled. - DVT ppx per ortho -- currently receiving ASA 81 mg daily. - PT/OT for discharge planning. (2) Pulmonary emphysema: - Requires 2L qhs at home; currently requiring 2-3L via NC throughout day as inpatient. - No evidence of acute exacerbation. - Continue Prednisone 10 mg PO daily (home dose); no indication for stress dose steroids. - Symbicort BID; Duoneb q4hr and Albuterol q4hr - both prn SOB/wheezing. - Benzonatate TID prn cough. (3) Chronic lymphocytic leukemia: - Baseline WBC ~20-30; currently increased to 43 in setting of IV steroid s. - Continue to trend daily. - F/u as outpatient with ux architect. (4) Anemia: - Hgb trending down as expected in post op setting. - Monitor daily, transfuse if indicated. (5) CAD (coronary artery disease): - No acute cardiac symptoms present at this time. - Continue ASA 81 mg daily, Lipitor 80 mg daily, Toprol XL 25 mg qAM as prescribed. - Nitro prn chest pain. (6) Acid reflux disease: - Protonix daily. (7) DVT prophylaxis: - SCDs; ASA 81 mg daily. Dispo: Med/surg; will continue to follow, please call with any questions. Subjective Pt. is doing well overall. Reports pain in neck, well controlled. Is passing gas, no BM yet. Denies chest pain, SOB. Review of Systems Review of Systems: All systems reviewed & are unremarkable except as noted in HPI & below Constitutional: no fever, no chills, no fatigue and no weakness Respiratory: no cough, no dyspnea, no dyspnea on exertion and no wheezing Cardiovascular: no chest pain, no palpitations and no edema Gastrointestinal: + constipation; no abdominal pain and no nausea Genitourinary: no difficulty urinating Musculoskeletal: + neck pain; no back pain and no joint pain Integumentary: no non-healing lesions Physical Exam Physical Exam: General: Resting comfortably HEENT: NC/AT; PERRLA with EOMI; [place] conjunctiva, MMM. No erythema of posterior pharynx Neck: Supple and nontender; +neck brace. Cardiac: RRR Lungs: CTA bilaterally Abdomen: Bowel normoactive X 4; Nontender to palpation Extremities: Warm. No edema present Neuro: No focal weakness Skin: No rash Results & Data Vital Signs (Past 12 Hours) Vital Signs Temp Pulse Resp BP Pulse Ox 05/26/19 11:11 72 18 91 05/26/19 11:10 72 18 91 05/26/19 10:35 77 15 127/73 92 05/26/19 08:48 36.6 C 69 16 126/79 93 05/26/19 07:27 63 20 89 L 05/26/19 07:11 92 05/26/19 06:50 60 16 93 05/26/19 06:35 36.8 C 76 16 133/74 95 05/26/19 04:40 36.4 C L 66 16 133/75 96 05/26/19 03:42 60 16 95 05/26/19 02:40 36.6 C 69 16 123/77 97 05/26/19 00:40 36.6 C 72 16 123/71 96 Laboratory Results 05/26/19 05/26/19 05/26/19 Range/Units 05:44 05:44 05:44 WBC 43.84 H* (4.8-10.8) K/uL RBC 4.12 L (4.7-6.1) M/uL Hgb 10.7 L (14.0-18.0) g/dL Hct 33.6 L (42-52) % MCV 81.6 (80-100) fL MCH 26.0 (25-34) pg MCHC 31.8 L (32-36) g/dL RDW Std Deviation 49.7 H (36.4-46.3) fL RDW Coeff of Vincent 16.8 H (11.5-14.5) % Plt Count 250 (130-400) K/uL MPV 8.4 (7.4-10.4) fL Immature Gran % (Auto) 0.6 % Neut % (Auto) 37.3 % Lymph % (Auto) 57.8 % [place] % (Auto) 4.2 % Eos % (Auto) 0.0 % Baso % (Auto) 0.1 % Immature Gran # (Auto) 0.27 H (0.00-0.02) K/uL Neut # (Auto) 16.39 H (1.4-6.5) K/uL Lymph # (Auto) 25.32 H (1.2-3.4) K/uL [place] # (Auto) 1.82 H (0.11-0.59) K/uL Eos # (Auto) 0.00 (0-0.5) K/uL Baso # (Auto) 0.04 (0-0.2) K/uL Sodium 139 (136-145) mmol/L Potassium 4.2 (3.5-5.1) mmol/L Chloride 104 (98-107) mmol/L Carbon Dioxide 29 (21-32) mmol/L Anion Gap 6.0 (3-11) BUN 10 (7-18) mg/dl Creatinine 0.83 (0.6-1.4) mg/dl Est Cr Clr Drug Dosing 71.4 ml/min Est GFR ( Amer) 102.6 Est GFR (Non-Af Amer) 88.5 BUN/Creatinine Ratio 11.5 (10-20) Glucose 133 H (70-99) mg/dl Calcium 8.4 L (8.5-10.1) mg/dl Hepatitis C Ab Screen Neg (Neg) PG Care Time/CCT Total # of Minutes Spent Total Time Spent with Patient: Total time spent is greater than 50% in coordination of care (as documented) at patient's floor/unit and/or counseling patient: (1) Anemia Anemia type: other cause (2) Pulmonary emphysema Emphysema type: unspecified Qualified Code(s): J43.9 - Emphysema, unspecified (3) Acid reflux disease Esophagitis presence: esophagitis presence not specified Qualified Code(s): K21.9 - Gastro-esophageal reflux disease without esophagitis
[2019-05-26] MEDS ORDERED: POLYETHYLENE (MIRALAX) 17 GM PACK PO SCH (12:00)
[2019-05-27] MEDS ORDERED: bisacodyL 10 MG SUPP PR PRN (10:07)
== END 2019-05-26 13:39 | disposition home or self-care (01) | DRG 454 ==
LOC: ASU 05:58 → 3E 10:07
DX: C91.11 Chronic lymphocytic leukemia of B-cell type in remission; E78.5 Hyperlipidemia, unspecified; M48.02 Spinal stenosis, cervical region; Z79.52 Long term (current) use of systemic steroids; I25.2 Old myocardial infarction; Z87.891 Personal history of nicotine dependence; K21.9 Gastro-esophageal reflux disease without esophagitis; I25.10 Atherosclerotic heart disease of native coronary artery without angina pectoris; M54.12 Radiculopathy, cervical region; Z88.8 Allergy status to other drugs, medicaments and biological substances; Z79.82 Long term (current) use of aspirin; D64.9 Anemia, unspecified; J43.9 Emphysema, unspecified

== ENCOUNTER 2019-05-28 07:14 | Inpatient (IN) ==
[2019-05-28] MEDS ORDERED: ACETAMINOPHEN 325 MG TAB PO PRN (09:03)
[2019-05-28] MEDS ORDERED: OXYCODONE HCL IR 5 MG TAB (IMMEDIATE RELEASE) PO PRN ×2 (09:05→18:09)
[2019-05-28] MEDS ORDERED: ALBUTEROL HFA 8 GM INHALER INH PRN (09:07)
[2019-05-28] MEDS ORDERED: ALBUT/IPRATROP 3MG/0.5MG NEB 3 ML VIAL NEB ONE (09:15)
[2019-05-28] MEDS ORDERED: VANCOMYCIN CONSULT ACTIVE PRN (09:20)
[2019-05-28] MEDS ORDERED: VANCOMYCIN HCL 1,500 MG in SODIUM CHLORIDE 0.9% 500 ML IV ONE (09:45)
[2019-05-28 10:22] LABS: Creatinine Clr Calc Pharmacy 58.2 ml/min; Est GFR (African American) 95.4; Est GFR (Non-African American) 82.3
[2019-05-28] MEDS: METOPROLOL SUCC 25MG EXT REL TAB PO SCH (11:01)
[2019-05-28] MEDS: BUDESONIDE/FORMOTEROL FUMARATE 160/4.5 60 PUFFS/INHALER INH SCH ×2 (11:01→19:31)
--- NOTE | 2019-05-28 11:03 | Pharmacy Report ---
Pharmacy Abx Initial Consult - Date of Service May 28, 2019 - Pharmacy Dosing Scope Date of Consult: 05/28 Consultation requested by: Dr. Staton Pharmacy is consulted to initiate vancomycin IV/PO dosing therapy, order appropriate labs and adjust drug dose/frequency. - Subjective The patient is a 73 year old M admitted on 05/28/19 08:19. - Objective Height: 5 ft 7 in Weight: 56.5 kg Vital Signs (Past 12hrs): Vital Signs Temp Pulse Pulse Resp BP Pulse Ox 05/28/19 09:22 104 H 20 93 05/28/19 08:30 36.8 C 105 H 22 148/80 H 91 Lab Results (24hrs): Laboratory Tests (24 Hours) 05/28/19 09:46 Creatinine 0.93 Est Cr Clr Drug Dosing 58.2 - Risk Factors for Resistance * Immunocompromised (chronic steroid therapy) * Antimicrobial use within the last 90 days [azithromycin] - Assessment & Plan Assessment 73 year old M who is direct transfer from [facility] for concern of cervical abscess/bone joint infection. Per nurse, patient received vancomycin 1500 mg this morning prior to transport and also cefepime. PMHx significant for chronic lymphocytic leukemia. S/p cervical diskectomy on 05/25 Plan Vancomycin IV * Received loading dose prior to transport of 1500 mg x 1 (~26 mg/kg) * Will start maintenance dose of vancomycin 1000 mg (~17 mg/kg) iv q 16 hrs to achieve an estimated trough ~20 mcg/ml (goal for bone/joint infection) * Baseline scr appears to be around 1.0 mg/dL - estimated kinetics on admission : ke~0.05 hr-1, t1/2~13 hr, CrCl ~58 ml/min * Will plan to obtain a trough prior to the 0600 dose on 05/30 to ensure therapeutic * Ortho also consulted to follow patient Pharmacy will continue to follow and will adjust dose/frequency as necessary. Thank you.
[2019-05-28] MEDS ORDERED: INFLUENZA VACCINE HIGH DOSE 65+ 0.5 ML SYR IM ONE (11:15)
[2019-05-28] MEDS ORDERED: INFLUENZA ADMINISTRATION CHARGE ONE (11:15)
--- NOTE | 2019-05-28 12:49 | Orthopedic Consultation ---
Date of Consultation May 28, 2019 Assessment & Plan (1) Hematoma following procedure: Plan at this time we are going to have him go to surgery this afternoon I&D the anterior cervical spine evacuate hematoma obtain any cultures if necessary. Risk benefits pros cons and alternatives were outlined in detail. Patient understands and agrees. Present on Admission?: Yes History of Present Illness Reason for Consultation: Difficulty swallowing with cervicalgia Attending Physician: Bry Bello, DO History of Present Illness This is a 73-year-old male well-known to me status post multilevel anterior cervical discectomy and fusion 3 days ago. He is had marked difficulty swallowing over the past 2 days and was brought to our institution from an outside the ER. He states he has no arm symptoms neck pain is relatively well controlled. Allergies Allergy/AdvReac Type Severity Reaction Status Date / Time montelukast [From Singrosalinair] Allergy GETS URI Verified 05/25/19 06:34 Home Medications Home Medications Medication Instructions Recorded Confirmed Type hydroxyzine HCl 25 mg tablet 25 mg PO HS #30 tab 02/05/19 05/25/19 Rx albuterol sulfate 2.5 mg/3 mL 2.5 mg INH Q4H PRN #180 ml 03/03/19 05/25/19 Rx (0.083 %) solution for nebulization budesonide-formoterol HFA 160 2 puffs INH BID #10.2 gm 03/03/19 05/25/19 Rx mcg-4.5 mcg/actuation aerosol inhaler nitroglycerin 0.4 mg sublingual 0.4 mg SL Q5M PRN #25 tab 03/03/19 05/25/19 Rx tablet Incruse Ellipta 1 puffs INH QAM 03/23/19 05/25/19 History aspirin [Adult Low Dose Aspirin] 81 mg PO QAM 03/23/19 05/25/19 History atorvastatin 80 mg PO DAILY 03/23/19 05/25/19 History meclizine 25 mg PO TID PRN 03/23/19 05/25/19 History metoprolol succinate 25 mg PO QAM 03/23/19 05/25/19 History zafirlukast [Accolate] 20 mg PO BIDM 03/23/19 05/25/19 History benzonatate 100 mg capsule 100 mg PO TID PRN #30 cap 05/18/19 05/25/19 Rx omeprazole 40 mg capsule,delayed 40 mg PO QAM 05/20/19 05/25/19 History release albuterol sulfate [Ventolin HFA] 2 puff INHALATION Q4H PRN 05/21/19 05/25/19 History azithromycin [Zithromax Z-Jose] 250 mg PO UD 05/21/19 05/25/19 History prednisone 10 mg tablet 10 mg PO DAILY #14 tab 05/21/19 05/25/19 Rx oxycodone 5 mg PO Q4H PRN #20 tab 05/25/19 Rx Patient History Social History Preferred Language: Bhutanese Communication Ability: Effective White Sugar Syrup Operator Required: No Beliefs That Will Affect Care: None Current Living Situation: Spouse Other Information That Helps Us Care for You: No Feels Safe at Home: Yes Smoking Status: Former smoker Second Hand Exposure: Yes (DAILY) ; Hx Alcohol Use: No Hx Substance Use: No Physical Exam Physical Exam: On exam there is some appreciable modest swelling to the anterior cervical spine. He is very thin individual. There is no erythema no drainage the incision appears to be healing appropriately. He has good strength testing bilateral upper extremities he is ambulating without difficulty. Results & Data Vital Signs (Past 12 Hours) Vital Signs Temp Pulse Pulse Resp BP Pulse Ox 05/28/19 11:50 36.7 C 86 16 136/80 97 05/28/19 09:22 104 H 20 93 05/28/19 08:30 36.8 C 105 H 22 148/80 H 91
--- NOTE | 2019-05-28 14:13 | Anesthesiology Consultation ---
Date of Service May 28, 2019 Assessment & Plan Chart Review Chart Review: Acceptable Risk for Surgery Consults Requested none History Surgery Operation Date: 05/28/19 15:30 Proposed Procedures p Incision and Drainage Cervical Spine - Sunday Torres DO Height/Weight Height: 5 ft 7 in Weight: 56.5 kg Allergies Allergy/AdvReac Type Severity Reaction Status Date / Time montelukast [From Singulair] Allergy GETS URI Verified 05/25/19 06:34 Medications Home Medications Medication Instructions Recorded Confirmed Last Taken hydroxyzine HCl 25 mg tablet 25 mg PO HS #30 tab 02/05/19 05/25/19 05/24/19 23:00 albuterol sulfate 2.5 mg/3 mL 2.5 mg INH Q4H PRN #180 ml 03/03/19 05/25/19 05/24/19 23:00 (0.083 %) solution for nebulization budesonide-formoterol HFA 160 2 puffs INH BID #10.2 gm 03/03/19 05/25/19 05/25/19 04:30 mcg-4.5 mcg/actuation aerosol inhaler nitroglycerin 0.4 mg sublingual 0.4 mg SL Q5M PRN #25 tab 03/03/19 05/25/19 Unknown tablet Incruse Ellipta 1 puffs INH QAM 03/23/19 05/25/19 05/25/19 04:15 aspirin [Adult Low Dose Aspirin] 81 mg PO QAM 03/23/19 05/25/19 05/20/19 atorvastatin 80 mg PO DAILY 03/23/19 05/25/19 05/24/19 15:00 meclizine 25 mg PO TID PRN 03/23/19 05/25/19 05/25/19 04:15 metoprolol succinate 25 mg PO QAM 03/23/19 05/25/19 05/24/19 10:30 zafirlukast [Accolate] 20 mg PO BIDM 03/23/19 05/25/19 05/24/19 18:00 benzonatate 100 mg capsule 100 mg PO TID PRN #30 cap 05/18/19 05/25/19 Unknown omeprazole 40 mg capsule,delayed 40 mg PO QAM 05/20/19 05/25/19 05/25/19 04:15 release albuterol sulfate [Ventolin HFA] 2 puff INHALATION Q4H PRN 05/21/19 05/25/19 05/25/19 04:30 azithromycin [Zithromax Z-Jose] 250 mg PO UD 05/21/19 05/25/19 05/23/19 prednisone 10 mg tablet 10 mg PO DAILY #14 tab 05/21/19 05/25/19 05/24/19 10:00 oxycodone 5 mg PO Q4H PRN #20 tab 05/25/19 Unknown Active Medications Generic Name Dose Route Start Last Admin Trade Name Freq PRN Reason Stop Dose Admin Budesonide/Formoterol Fumarate 2 puffs 05/28/19 09:30 05/28/19 11:01 Symbicort 160mcg/4.5mcg INH 06/27/19 09:29 2 puffs BID JOSH Administration Metoprolol Succinate 25 mg 05/28/19 09:15 05/28/19 11:01 Toprol Xl PO 06/27/19 09:14 25 mg QAM JOSH Administration Miscellaneous 1 ea 05/28/19 09:30 05/28/19 10:51 Order Awaiting Action N/A 06/27/19 09:29 Not Given QS JOSH Miscellaneous 1 ea 05/28/19 09:30 05/28/19 10:51 Order Awaiting Action N/A 06/27/19 09:29 Not Given QS JOSH NPO Date Last Intake of Fluids: 05/27/19 Time Last Intake of Fluids: 18:00 Date Last Intake of Solids: 05/27/19 Time Last Intake of Solids: 18:00 Past Medical History Medical History Chronic lymphocytic leukemia chronic leukocytosis (baseline WBC 20-30 range per chart review) Anemia chronic; baseline hgb 10-11 range per chart review Asthma CAD (coronary artery disease) stents x 2 (2017) Cervical disc disease Chronic obstructive pulmonary disease CURRENTLY ON ABX/STEROIDS FOR RECENT COPD EXAC. Emphysema of lung GERD (gastroesophageal reflux disease) History of GI bleed History of kidney stones Hx of myocardial infarction 2017- stents x 2 Hyperlipidemia Nocturnal hypoxemia 2L O2 HS Past Family History Family History Mother Hypertension Myocardial infarction Lung cancer Brother Congestive heart failure Past Surgical History Surgical History History of cardiac cath 2017- stents x 2 History of carpal tunnel surgery of left wrist History of carpal tunnel surgery of right wrist History of colonoscopy History of dental surgery History of esophagogastroduodenoscopy (EGD) History of laparoscopic cholecystectomy History of thumb surgery History of umbilical hernia repair Hx of elbow surgery LEFT Social History Smoking Status: Former smoker Hx Alcohol Use: No Hx Substance Use: No Physical Exam Vital Signs Last Vital Signs Temp 37.2 C 05/28/19 13:56 Pulse 91 H 05/28/19 13:56 Resp 18 05/28/19 13:56 BP 140/92 05/28/19 13:56 Pulse Ox 94 05/28/19 13:56 Testing Laboratory Results 05/28/19 09:46
[2019-05-28] MEDS ORDERED: ATROPINE SULFATE 0.1 MG/ML 10ML SYR IV PRN (14:16)
[2019-05-28] MEDS ORDERED: ePHEDrine sulfate 50 MG/ML AMP IV PRN (14:16)
[2019-05-28] MEDS ORDERED: fentaNYL citrate 100 MCG/2 ML VIAL IV PRN (14:16)
[2019-05-28] MEDS ORDERED: HYDROmorphone INJ 2 MG/ML SYR/VIAL IV PRN (14:16)
[2019-05-28] MEDS ORDERED: SUCCINYLCHOLINE CHLORIDE 20 MG/ML 10 ML VIAL ONE (14:23)
[2019-05-28] MEDS ORDERED: ePHEDrine sulfate 50 MG/ML AMP ONE (14:23)
[2019-05-28] MEDS ORDERED: NEOSTIGMINE METHYLSULFATE 1 MG/ML 10ML VIAL ONE (14:23)
[2019-05-28] MEDS ORDERED: ONDANSETRON INJ 2 MG/ML 2 ML VIAL ONE ×2 (14:23→16:13)
[2019-05-28] MEDS ORDERED: LIDOCAINE HCL 2% 2 ML VIAL/AMP(20MG/ML) INFIL ONE (14:23)
[2019-05-28] MEDS ORDERED: MIDAZOLAM HCL 1 MG/ML 2ML VIAL ONE (14:23)
[2019-05-28] MEDS ORDERED: fentaNYL citrate 100 MCG/2 ML VIAL ONE (14:23)
[2019-05-28] MEDS ORDERED: PROPOFOL IV EMULSION 10 MG/ML 20 ML VIAL IV ONE (14:23)
[2019-05-28] MEDS ORDERED: GLYCOPYRROLATE 0.2 MG/ML VIAL ONE (14:23)
[2019-05-28] MEDS ORDERED: PHENYLEPHRINE HCL 10 MG/ML VIAL ONE (14:23)
[2019-05-28] MEDS ORDERED: DEXAMETHASONE SOD INJ 4 MG/ML VIAL ONE (14:23)
[2019-05-28] MEDS ORDERED: BACITRACIN INJ 50,000 UNIT VIAL ONE (14:48)
[2019-05-28] MEDS ORDERED: BUPIVACAINE/EPINEPHRINE 0.5% MPF 1:200,000 30 ML VIAL ONE (14:49)
[2019-05-28] MEDS ORDERED: CEFAZOLIN 1000MG 1,000 MG/7.5 ML SYR IV ONE (15:26)
--- NOTE | 2019-05-28 15:41 | History & Physical Report ---
Date of Service May 28, 2019 Assessment & Plan (1) Hematoma following procedure: Mr. Prince is a pleasant 73 year old male with hx of cervical stenosis s/p ACDF on 05/25, emphysema, O2 dependent, , transferred from [facility] with concerns for a post-op abscess in the area of his recent ACDF C3-C6 on May 25. 1. Post-op hematoma causing dysphagia: - ? abscess. To the OR today with Dr. Torres for drainage - cultures sent from OR - will continue to cover with vanc until cultures are negative. 2) Pulmonary emphysema - not in exacerbation - chronic O2 use. 2L qhs and previously required 2-3L NC during the day during his recent inpatient stay - continue chronic home prednisone 10mg - continue home symbicort, albuterol q4h prn dyspnea/wheezing (3) Chronic lymphocytic leukemia: - baseline WBCs ~20-30, on discharge from prior surgery increased to 43 and now at [place] 97 - likely the increase is related to recent steroids as well as recent surgery. ?whether there is some element of infection as well. - continue to trend - follow up with hematology as an outpatient (4) Anemia: - hemoglobin 12 at [place] - monitor in the post-operative period (5) CAD (coronary artery disease): - no acute cardiac symptoms - continue home ASA 81mg, lipitor 80mg, Toprol XL 25mg - nitro prn chest pain (6) Acid reflux disease - protonix (at home uses omeprazole 40mg) Diet: NPO except sips and meds DVT prophylaxis: SCDs, ASA Code status: FULL Dispo: pending surgical opinion in the post-op period and hematoma cultures. Present on Admission?: Yes (2) DVT prophylaxis: (3) CAD (coronary artery disease): (4) Pulmonary emphysema: (5) Chronic lymphocytic leukemia: (6) Anemia: History of Present Illness Mr. Mendez is a 73 year old male, hx of CLL, emphysema, anemia, CAD and recent ACDF with Dr. Torres here for evaluation of a possible hematoma or abscess near his surgical site. He underwent ACDF C3-6 on May 25 here at [facility]. He was doing well, but started having pain in the anterior and posterior neck the evening of discharge. Pain became worse and he was unable to sleep. Denies numbness or new weakness in the upper extremities. Denies fevers, chills malaise. Did not use any of the post-op pain medications that were prescribed on discharge. In [place]: - CT Head without acute findings. - CT Cervical Spine: small foci of gas within the soft tissue of the anterior neck, surgical hardware - MRI Cervical Spine: 1 x 6.7 x 6.3 rim enhancing collection near the anterior margin of vertebral column that abuts the surgical hardware. - WBC 97 - received IV vanc and cefepime Primary Care Provider: Bjorn Sutherland MD Allergies Allergy/AdvReac Type Severity Reaction Status Date / Time montelukast [From Singulair] Allergy GETS URI Verified 05/25/19 06:34 Home Medications Home Medications Medication Instructions Recorded Confirmed Type hydroxyzine HCl 25 mg tablet 25 mg PO HS #30 tab 02/05/19 05/25/19 Rx albuterol sulfate 2.5 mg/3 mL 2.5 mg INH Q4H PRN #180 ml 03/03/19 05/25/19 Rx (0.083 %) solution for nebulization budesonide-formoterol HFA 160 2 puffs INH BID #10.2 gm 03/03/19 05/25/19 Rx mcg-4.5 mcg/actuation aerosol inhaler nitroglycerin 0.4 mg sublingual 0.4 mg SL Q5M PRN #25 tab 03/03/19 05/25/19 Rx tablet Incruse Ellipta 1 puffs INH QAM 03/23/19 05/25/19 History aspirin [Adult Low Dose Aspirin] 81 mg PO QAM 03/23/19 05/25/19 History atorvastatin 80 mg PO DAILY 03/23/19 05/25/19 History meclizine 25 mg PO TID PRN 03/23/19 05/25/19 History metoprolol succinate 25 mg PO QAM 03/23/19 05/25/19 History zafirlukast [Accolate] 20 mg PO BIDM 03/23/19 05/25/19 History benzonatate 100 mg capsule 100 mg PO TID PRN #30 cap 05/18/19 05/25/19 Rx omeprazole 40 mg capsule,delayed 40 mg PO QAM 05/20/19 05/25/19 History release albuterol sulfate [Ventolin HFA] 2 puff INHALATION Q4H PRN 05/21/19 05/25/19 History azithromycin [Zithromax Z-Jose] 250 mg PO UD 05/21/19 05/25/19 History prednisone 10 mg tablet 10 mg PO DAILY #14 tab 05/21/19 05/25/19 Rx oxycodone 5 mg PO Q4H PRN #20 tab 05/25/19 Rx Past Med/Surg History Medical History Chronic lymphocytic leukemia chronic leukocytosis (baseline WBC 20-30 range per chart review) Anemia chronic; baseline hgb 10-11 range per chart review Asthma CAD (coronary artery disease) stents x 2 (2017) Cervical disc disease Chronic obstructive pulmonary disease CURRENTLY ON ABX/STEROIDS FOR RECENT COPD EXAC. Emphysema of lung GERD (gastroesophageal reflux disease) History of GI bleed History of kidney stones Hx of myocardial infarction 2017- stents x 2 Hyperlipidemia Nocturnal hypoxemia 2L O2 HS Surgical History History of cardiac cath 2017- stents x 2 History of carpal tunnel surgery of left wrist History of carpal tunnel surgery of right wrist History of colonoscopy History of dental surgery History of esophagogastroduodenoscopy (EGD) History of laparoscopic cholecystectomy History of thumb surgery History of umbilical hernia repair Hx of elbow surgery LEFT Family History Mother Hypertension Myocardial infarction Lung cancer Brother Congestive heart failure Social History Preferred Language: Tanzanian Communication Ability: Effective Steam Conditioner Operator Required: No Beliefs That Will Affect Care: None Current Living Situation: Spouse Other Information That Helps Us Care for You: No Feels Safe at Home: Yes Smoking Status: Former smoker Second Hand Exposure: Yes (DAILY) ; Hx Alcohol Use: No Hx Substance Use: No Review of Systems Constitutional: no fever, no chills, no fatigue, no malaise and no anorexia Ear, Nose, Mouth, Throat: + dysphagia and + pain with swallowing; no ear pain Respiratory: no dyspnea and no wheezing Cardiovascular: no chest pain, no chest pain with activity and no radiating jaw, neck or arm pain Gastrointestinal: + nausea Genitourinary: no flank pain Musculoskeletal: as per Subjective / HPI Integumentary: as per Subjective / HPI Neurologic: no falls, no paralysis, no numbness and no radiating pain Physical Exam Constitutional: WD/WN, vitals as above well developed and + thin; no acute distress, not ill appearing and no altered mental status Eyes: PERRL, conjunctivae normal, anicteric sclerae ENMT: external ear and nose normal, oropharynx normal Neck: normal visual inspection Large dressing to the right anterior neck Respiratory: normal respiratory effort, lungs clear to auscultation Cardiovascular: RRR, no murmur, no edema Gastrointestinal (Abdomen): normal bowel sounds, soft, nontender, no hepatosplenomegaly Musculoskeletal: Spine: + limited cervical ROM Skin: no rashes, warm and dry Dressing to the anterior right neck is clean and in tact. 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 Results & Data Vital Signs (Past 12 Hours) Vital Signs Temp Pulse Pulse Resp BP Pulse Ox 05/28/19 13:56 37.2 C 91 H 18 140/92 94 05/28/19 11:50 36.7 C 86 16 136/80 97 05/28/19 09:22 104 H 20 93 05/28/19 08:30 36.8 C 105 H 22 148/80 H 91 Code Status & VTE Plan VTE Prophylaxis Plan VTE Prophylaxis will be ordered: Yes PG Care Time/CCT Total # of Minutes Spent Total Time Spent with Patient: Total time spent is greater than 50% in coordination of care (as documented) at patient's floor/unit and/or counseling patient: (1) Pulmonary emphysema Emphysema type: unspecified Qualified Code(s): J43.9 - Emphysema, unspecified (2) Anemia Anemia type: other cause
--- NOTE | 2019-05-28 15:47 | Operative Report ---
Post Operative Report Pre & Post Diagnosis Operation Date: 05/28/19 15:30 Pre-Op Diagnosis: hematoma of cervical spine Post-Op Diagnosis: hematoma of cervical spine Procedure Operation Date: 05/28/19 15:30 Actual Procedures I&D incision and drainage of hematoma anterior cervical spine. Surgeon Sunday Torres DO [employer] Repairer Sabrina Galindo Estimated Blood Loss 5 Findings Consistent with Post-Op Diagnosis Specimens Cultures of hematoma Indications This is a 73-year-old male status post anterior cervical decompression and fusion compartment 3 days postop. He been having marked difficulty with swallowing over the past 2 days an MRI was obtained demonstrating significant fluid collection anterior to the cervical spine. Subsequently elected undergo urgent I&D. Description of Procedure Patient was met with identified and case discussed all questions addressed. Patient was then taken to the operative suite underwent intubation and placed in a supine position the Nicolas table with head Desai medical director/head team physician. All bony prominences well-padded eyes inspected to ensure no external pressure placed up on them. This point the anterior cervical spine was prepped and draped in normal sterile fashion. I then utilized the previous incision site and open the anterior cervical spine to to evacuate a very large hematoma in the prevertebral space. Cultures were obtained. A liter of antibiotic solution was irrigated throughout the incision. A 10 round ALAN drain inserted. Incision was then closed with 2 Vicryl in a fashion of 4 Monocryl for final skin closure. Steri- Strip sterile dressings placed. Patient awakened taken to PACU stable condition. Please note Sabrina Galindo present throughout the entire procedure involved in patient positioning and final skin closure. I attest to the content of the Intraoperative Record and any orders documented therein. Any exceptions are noted below.
--- NOTE | 2019-05-28 16:14 | Fluoroscopy Report ---
FL cervical 2-3V HISTORY: 73 years-old Male CERVICAL I D incision and drainage of the cervical spine COMPARISON: Fluoroscopic images of the cervical spine 05/25/2019 TECHNIQUE: Single lateral spot fluoroscopic image of the cervical spine was obtained utilizing 5.0 se conds fluoroscopy time FINDINGS: Lateral plate and screw fusion hardware with discectomy changes of the cervical spine are redemonstra kevin. Again, this appears to extend from the C3-C7 levels with C5-C6 corpectomy. C3-C4 discectomy. Mul tilevel spondylitic spurring with facet arthrosis. IMPRESSION: Fluoroscopic assistance as above. Please see operative report for further details. The above report was generated using voice recognition software. It may contain grammatical, syntax o r spelling errors. Electronically signed by: Barak Acuña M.D. 05/28/2019 4:13 PM
[2019-05-28] MEDS ORDERED: DEXAMETHASONE SOD INJ 4 MG/ML VIAL IV PRN (16:20)
[2019-05-28] MEDS ORDERED: METOCLOPRAMIDE HCL INJ 5 MG/ML 2 ML VIAL IV PRN ×2 (16:20→18:09)
[2019-05-28] MEDS ORDERED: ONDANSETRON INJ 2 MG/ML 2 ML VIAL IV PRN ×2 (16:20→18:09)
[2019-05-28] MEDS ORDERED: PROMETHAZINE HCL 12.5 MG in SODIUM CHLORIDE 0.9% 50 ML IV PRN ×2 (16:20→18:09)
--- NOTE | 2019-05-28 16:48 | Anesthesiology Progress Note ---
Date of Service May 28, 2019 Anesthesia Post Procedure Vital Signs Vital Signs: Temp Pulse Pulse Pulse Resp BP Pulse Ox 05/28/19 16:40 75 14 126/73 94 05/28/19 16:30 73 14 129/75 94 05/28/19 16:20 87 16 131/81 96 05/28/19 16:10 88 18 136/77 96 05/28/19 16:03 36.2 C L 82 18 140/78 100 05/28/19 13:56 37.2 C 91 H 18 140/92 94 05/28/19 11:50 36.7 C 86 16 136/80 97 05/28/19 09:22 104 H 20 93 05/28/19 08:30 36.8 C 105 H 22 148/80 H 91 Transfer of Care Handoff Completed per policy Notes Mental Status: alert / awake / arousable and participated in evaluation Patient Amnestic to Procedure: Yes Nausea / Vomiting: adequately controlled Pain: adequately controlled Airway Patency, RR, SpO2: stable & adequate BP & HR: stable & adequate Hydration State: stable & adequate Anesthetic Complications: no major complications apparent
[2019-05-28] MEDS ORDERED: DO NOT ADMINISTER FLU VACCINE PRN (18:09)
[2019-05-28] MEDS ORDERED: ALUMINUM/MAGNESIUM SUSP 30 ML UDC PO PRN (18:09)
[2019-05-28] MEDS ORDERED: TRAMADOL HCL 50 MG TABLET PO PRN (18:09)
[2019-05-28] MEDS ORDERED: SOD PHOSPHATE/SOD BIPHOSPHATE ENEMA 132 ML BTL PR PRN (18:09)
[2019-05-28] MEDS ORDERED: LORazepam 0.5 MG TAB PO PRN (18:09)
[2019-05-28] MEDS ORDERED: MAGNESIUM HYDROXIDE SUSP 30 ML UDC PO PRN (18:09)
[2019-05-28] MEDS ORDERED: ONDANSETRON 4 MG TAB PO PRN (18:09)
[2019-05-28] MEDS ORDERED: DEXAMETHASONE SOD PHOSPHATE 8 MG in SYRINGE 0 ML IV PRN (18:09)
[2019-05-28] MEDS ORDERED: NALOXONE HCL 0.4 MG/1 ML VIAL/CARP IV PRN (18:09)
[2019-05-28] MEDS ORDERED: RACEPINEPHRINE 2.25% NEBU SOLN 0.5 ML VIAL INH PRN (18:09)
[2019-05-28] MEDS ORDERED: HYDROmorphone INJ 0.5 MG/0.5 ML SYR IV PRN (18:09)
[2019-05-28] MEDS ORDERED: DO NOT ADMINISTER PNEUMOCOCCAL VACCINE PRN (18:09)
[2019-05-28] MEDS ORDERED: FAMOTIDINE 20 MG TAB PO PRN (18:09)
[2019-05-28] MEDS ORDERED: LORazepam 0.5 MG/1 ML VIAL IV PRN (18:09)
[2019-05-28] MEDS ORDERED: ACETAMINOPHEN 500 MG TAB PO PRN (18:09)
[2019-05-28] MEDS: LACTATED RINGER'S 1,000 ML IV SCH (18:44)
[2019-05-28] MEDS: DOCUSATE SODIUM/SENNA 50/8.6MG TAB PO SCH (22:06)
[2019-05-28] MEDS: VANCOMYCIN HCL 1,000 MG in SODIUM CHLORIDE 0.9% 250 ML IV SCH (22:31)
[2019-05-29] MEDS: CEFAZOLIN 1000MG 1,000 MG/7.5 ML SYR IV SCH ×2 (00:22→06:25)
[2019-05-29] MEDS: ACETAMINOPHEN 1,000 MG/100 ML VIAL IV PRN ×3 (02:37→22:42)
[2019-05-29 07:28] LABS: BUN Creatinine Ratio 14.4 (10-20); Calcium 8.5 mg/dl (8.5-10.1); Est GFR (African American) 95.4; Est GFR (Non-African American) 82.3; Potassium 4.2 mmol/L (3.5-5.1)
[2019-05-29 07:55] LABS: Hematocrit (blood only) 35.1 % (42-52); Hemoglobin 10.9 g/dL (14.0-18.0); Mean Corpuscular Hemoglobin 25.6 pg (25-34); Mean Corpuscular Hgb Conc 31.1 g/dL (32-36); Mean Corpuscular Volume 82.6 fL (80-100); Mean Platelet Volume 8.8 fL (7.4-10.4); Platelet Count 258 K/uL (130-400); RDW Coefficient of Variation 17.2 % (11.5-14.5); RDW Standard Deviation 50.9 fL (36.4-46.3); Red Blood Count 4.25 M/uL (4.7-6.1)
[2019-05-29] MEDS: ATORVASTATIN 40 MG TAB PO SCH (07:59)
[2019-05-29] MEDS: ASPIRIN 81 MG ECTAB PO SCH (07:59)
[2019-05-29] MEDS: METOPROLOL SUCC 25MG EXT REL TAB PO SCH (07:59)
[2019-05-29] MEDS: PANTOprazole 40 MG TAB PO SCH (07:59)
[2019-05-29] MEDS: predniSONE 10 MG TABLET PO SCH (07:59)
[2019-05-29] MEDS: BUDESONIDE/FORMOTEROL FUMARATE 160/4.5 60 PUFFS/INHALER INH SCH ×2 (07:59→20:15)
[2019-05-29 09:32] LABS: Basophils # (auto) 0.08 K/uL (0-0.2); Basophils % (auto) 0.1 %; Eosinophils # (auto) 0.01 K/uL (0-0.5); Immature Granulocytes # (auto) 0.34 K/uL (0.00-0.02); Immature Granulocytes % (auto) 0.5 %; Lymphocytes # (auto) 42.53 K/uL (1.2-3.4); Lymphocytes % (auto) 67.3 %; Monocytes # (auto) 3.24 K/uL (0.11-0.59); Monocytes % (auto) 5.1 %
--- NOTE | 2019-05-29 09:45 | Anesthesiology Progress Note ---
Date of Service May 29, 2019 Anesthesia Post Procedure Vital Signs Vital Signs: Temp Pulse Pulse Resp BP Pulse Ox Pulse Ox 05/29/19 07:47 36.6 C 73 18 146/75 H 91 05/29/19 04:27 36.8 C 82 20 145/79 H 92 05/29/19 03:30 83 16 94 05/28/19 23:49 36.9 C 88 20 137/78 94 05/28/19 23:21 78 14 96 05/28/19 20:39 74 18 121/76 95 05/28/19 19:49 36.6 C 79 18 133/80 95 05/28/19 19:39 100 H 18 112/84 93 05/28/19 19:08 75 18 96 05/28/19 18:09 94 05/28/19 17:10 74 14 121/64 94 05/28/19 17:00 36.2 C L 71 14 114/71 93 05/28/19 16:50 71 14 120/66 93 05/28/19 16:40 75 14 126/73 94 05/28/19 16:30 73 14 129/75 94 05/28/19 16:20 87 16 131/81 96 05/28/19 16:10 88 18 136/77 96 05/28/19 16:03 36.2 C L 82 18 140/78 100 05/28/19 13:56 37.2 C 91 H 18 140/92 94 05/28/19 11:50 36.7 C 86 16 136/80 97 Notes Mental Status: alert / awake / arousable Patient Amnestic to Procedure: Yes Nausea / Vomiting: adequately controlled Pain: adequately controlled Airway Patency, RR, SpO2: stable & adequate BP & HR: stable & adequate Hydration State: stable & adequate Anesthetic Complications: no major complications apparent and Pt Satisfied with anesthetic care
--- NOTE | 2019-05-29 13:25 | Orthopedic Progress Note ---
Date of Service May 29, 2019 Assessment & Plan (1) Hematoma following procedure: At this time we will maintain the ALAN drain at least another 24 hours. His cultures are thus far negative. Again I saw no evidence of infection during the procedure. He is to wear his collar at all times when out of bed. Present on Admission?: Yes Subjective Patient feels that his swallowing is improved. Pain well controlled. He has no hoarseness. Physical Exam Physical Exam: On exam patient is comfortable. Is good strength testing. He was able to swallow water without difficulty. Dressings in place and intact. Results & Data Vital Signs (Past 12 Hours) Vital Signs Temp Pulse Pulse Resp BP Pulse Ox 05/29/19 11:45 36.6 C 104 H 16 118/68 86 L 05/29/19 11:27 72 16 92 05/29/19 08:00 62 18 77 L 05/29/19 07:47 36.6 C 73 18 146/75 H 91 05/29/19 04:27 36.8 C 82 20 145/79 H 92 05/29/19 03:30 83 16 94
[2019-05-29] MEDS: POLYETHYLENE (MIRALAX) 17 GM PACK PO SCH ×2 (15:11→17:49)
[2019-05-29] MEDS: VANCOMYCIN HCL 1,000 MG in SODIUM CHLORIDE 0.9% 250 ML IV SCH (15:12)
--- NOTE | 2019-05-29 16:45 | Family Medicine Progress Note ---
Date of Service May 29, 2019 Assessment & Plan (1) Hematoma following procedure: Mr. Prince is a pleasant 73 year old male with hx of cervical stenosis s/p ACDF on 05/25, emphysema, O2 dependent, , transferred from [facility] with concerns for a post-op abscess in the area of his recent ACDF C3-C6 on May 25. 1. Post-op hematoma causing dysphagia: - Postop from I&D of hematoma anterior cervical spine -Cultures remain negative, no evidence of abscess formation during surgery - Continue vancomycin DC after 48 hours of no growth on cultures 2) Pulmonary emphysema - not in exacerbation, not wheezing on physical exam - chronic O2 use. 2L qhs and previously required 2-3L NC during the day during his recent inpatient stay - continue chronic home prednisone 10mg - continue home symbicort, albuterol q4h prn dyspnea/wheezing (3) Chronic lymphocytic leukemia: - baseline WBCs ~20-30, on discharge from prior surgery increased to 43 and now at [place] 97, decreased to 63.2 this morning - likely the increase is related to recent steroids as well as recent surgery. Given negative culture results, and and lack of stigmata suggestive of infection on clinical exam and during operative inspection infection unlikely - continue to trend - follow up with hematology as an outpatient (4) Anemia: - hemoglobin 12 at [place] decreased to 10.9 this morning -Follow-up a.m. CBC (5) CAD (coronary artery disease): - no acute cardiac symptoms - continue home ASA 81mg, lipitor 80mg, Toprol XL 25mg - nitro prn chest pain (6) Acid reflux disease - protonix (at home uses omeprazole 40mg) FENa:Clear liquid Code Status: Full DVT PPX: SCDs/ASA PT/OT: Consulted Dispo: Hopefully home tomorrow Martin Harrington MD PGY 2, FCM This chart was completed utilizing [employer] voice recognition software. Grammatical errors, random word insertions, pronoun errors, and in complete sentences are an occasional consequence of the system. Any questions or concerns about the content, text, or information contained within the body of this dictation should be addressed directly to the physician for clarification. Supervising Physician Co-Signing Physician Notes Attending attestation Pt seen and examined in concert with Dr. Harrington. In agreement with the documented findings as noted in the resident documentation with any exceptions or additions as noted here. Pt laying comfortably in bed with significantly reduced neck pain following procedure. Tolerating present regimen well. Is anxious about leaving before he is on the right trajectory, as he has bounced back repeatedly in the past. On examination, S1/S2 nl RRR no MCG. CTAB. Abd NT/ND BS+ve. Neck dressing C/D/I Neck pain s/p ACDF w/ collection - hematoma visible on procedure. Follow cultures and continue abx until cultures return 48 hrs negative. Pain mgmt per surgical recommendation. Gentle IVF, can d/c when tolerating PO well. Trend BMP on vanc Emphysema with chronic hypoxic respiratory failure - continue O2 supplementation and wean to 2L baseline qHS as tolerated. Continue prednisone daily and home inhaler regimen. CLL w/ leukocytosis - monitor CBC Anemia, chronic - monitor CBC Else see resident documentation as noted. Subjective Patient doing well postoperatively. Lying in bed in no acute distress, eating, sleeping, voiding, stooling. Working on postoperative milestones advance diet as tolerated, all questions answered no acute concerns. Review of Systems Constitutional: no fever, no chills and no sweats Eyes: no eye pain, no photophobia and no worsening vision Ear, Nose, Mouth, Throat: + pain with swallowing; no ear pain and no facial pain Respiratory: + cough, + chest congestion and + wheezing Cardiovascular: no chest pain, no palpitations and no lightheadedness Physical Exam Physical Exam: General: Elderly gentleman in no acute distress, and HEENT: Normocephalic atraumatic Neck: Status post cervical fusion, surgical site clean dry and intact Cardiac: Regular rate and rhythm and appreciate significant murmurs rubs or gallops, negative calf tenderness, negative pedal edema Respiratory: Clear to auscultation bilaterally GI: Bowel sounds present MSK: Limited cervical range of motion otherwise within normal limits Skin: Surgical site clean dry and intact Neuro: Alert and oriented Psych: Calm, cooperative Results & Data Vital Signs (Past 12 Hours) Vital Signs Temp Pulse Pulse Pulse Resp BP BP 05/29/19 15:58 37 C 71 19 129/78 05/29/19 15:57 37 C 71 19 129/78 05/29/19 15:47 78 16 05/29/19 11:45 36.6 C 104 H 16 118/68 05/29/19 11:27 72 16 05/29/19 08:00 62 18 05/29/19 07:47 36.6 C 73 18 146/75 H Pulse Ox 05/29/19 15:58 96 05/29/19 15:57 96 05/29/19 15:47 94 05/29/19 11:45 86 L 05/29/19 11:27 92 05/29/19 08:00 77 L 05/29/19 07:47 91 Laboratory Results 05/29/19 05/29/19 Range/Units 06:39 06:39 WBC 63.20 H* (4.8-10.8) K/uL RBC 4.25 L (4.7-6.1) M/uL Hgb 10.9 L (14.0-18.0) g/dL Hct 35.1 L (42-52) % MCV 82.6 (80-100) fL MCH 25.6 (25-34) pg MCHC 31.1 L (32-36) g/dL RDW Std Deviation 50.9 H (36.4-46.3) fL RDW Coeff of Vincent 17.2 H (11.5-14.5) % Plt Count 258 (130-400) K/uL MPV 8.8 (7.4-10.4) fL Immature Gran % (Auto) 0.5 % Neut % (Auto) 27.0 % Lymph % (Auto) 67.3 % [place] % (Auto) 5.1 % Eos % (Auto) 0.0 % Baso % (Auto) 0.1 % Immature Gran # (Auto) 0.34 H (0.00-0.02) K/uL Neut # (Auto) 17.00 H (1.4-6.5) K/uL Lymph # (Auto) 42.53 H (1.2-3.4) K/uL [place] # (Auto) 3.24 H (0.11-0.59) K/uL Eos # (Auto) 0.01 (0-0.5) K/uL Baso # (Auto) 0.08 (0-0.2) K/uL Blood Smear Review Sodium 137 (136-145) mmol/L Potassium 4.2 (3.5-5.1) mmol/L Chloride 101 (98-107) mmol/L Carbon Dioxide 29 (21-32) mmol/L Anion Gap 7.0 (3-11) BUN 13 (7-18) mg/dl Creatinine 0.93 (0.6-1.4) mg/dl Est Cr Clr Drug Dosing 60.0 ml/min Est GFR ( Amer) 95.4 Est GFR (Non-Af Amer) 82.3 BUN/Creatinine Ratio 14.4 (10-20) Glucose 85 (70-99) mg/dl Calcium 8.5 (8.5-10.1) mg/dl Medications Administered Current Inpatient Medications Acetaminophen (Tylenol) 1,000 mg PO Q8H PRN PRN Reason: MILD Pain Rating 1,2,3 Stop: 06/27/19 18:08 Al Hydrox/Mg Hydrox/Simethicone (Maalox) 30 ml PO Q6H PRN PRN Reason: Dyspepsia Stop: 06/27/19 18:08 Albuterol (Ventolin Hfa) 2 puffs INH Q4H PRN PRN Reason: Wheezing Stop: 06/27/19 09:06 Aspirin (Ecotrin Ectab) 81 mg PO QAM [facility] Stop: 06/28/19 08:59 Last Admin: 05/29/19 07:59 Dose: 81 mg Documented by: Atorvastatin Calcium (Lipitor) 80 mg PO DAILY [facility] Stop: 06/28/19 08:59 Last Admin: 05/29/19 07:59 Dose: 80 mg Documented by: Bisacodyl (Dulcolax) 10 mg SD DAILY PRN PRN Reason: Constipation Stop: 06/29/19 15:47 Budesonide/Formoterol Fumarate (Symbicort 160mcg/4.5mcg) 2 puffs INH BID [facility] Stop: 06/27/19 09:29 Last Admin: 05/29/19 07:59 Dose: 2 puffs Documented by: Diphenhydramine HCl (Benadryl Capsule) 25 mg PO Q6H PRN PRN Reason: Allergic Rhinitis/Insomnia Stop: 06/27/19 18:08 Epinephrine (Raccemic Epinephrine 2.25% 0.5ml) 0.5 ml INH NOW PRN PRN Reason: if stridor present Stop: 06/27/19 18:08 Famotidine (Pepcid) 20 mg PO Q12H PRN PRN Reason: Dyspepsia Stop: 06/27/19 18:08 Hydromorphone HCl (Dilaudid) 0.5 mg IV Q3H PRN PRN Reason: moderate pain (scale 4-6) Stop: 06/11/19 18:08 Hydroxyzine HCl (Vistaril) 25 mg PO Q8H PRN PRN Reason: Anxiety Stop: 06/27/19 18:08 Vancomycin HCl 1,000 mg/ (Sodium Chloride) 270 mls @ 125 mls/hr IV Q16H [facility] Stop: 07/09/19 21:59 Last Admin: 05/29/19 15:12 Dose: 125 mls/hr Documented by: Acetaminophen (Ofirmev) 1,000 mg in 100 mls @ 400 mls/hr IV Q8H PRN PRN Reason: pain rating 1-3 Stop: 06/27/19 18:08 Last Infusion: 05/29/19 08:11 Dose: Infused Documented by: Lorazepam (Ativan) 0.5 mg in 1 mls @ 1 mls/min IV Q8H PRN PRN Reason: Sedation/Anxiety Stop: 06/27/19 18:08 Dexamethasone Sodium Phosphate (8 mg/ Syringe) 2 mls @ 1 mls/min IV NOW PRN PRN Reason: stridor Stop: 06/27/19 18:08 Lactated Ringer's (Lr) 1,000 mls @ 75 mls/hr IV .[id number] [facility] Stop: 06/27/19 18:08 Last Infusion: 05/29/19 15:12 Dose: Infused Documented by: Promethazine HCl 12.5 mg/ (Sodium Chloride) 50.5 mls @ 202 mls/hr IV Q6H PRN PRN Reason: Nausea &/or Vomiting Stop: 06/27/19 18:08 Influenza Virus Vaccine Quadrival (Flu Vaccine, Do Not Administer) 1 ea N/A PRN PRN PRN Reason: Notification Stop: 06/27/19 18:08 Lorazepam (Ativan) 0.5 mg PO Q8H PRN PRN Reason: sedation/anxiety Stop: 06/27/19 18:08 Magnesium Hydroxide (Milk Of Magnesia) 30 ml PO Q24H PRN PRN Reason: Constipation Stop: 06/27/19 18:08 Metoclopramide HCl (Reglan) 10 mg IV Q6H PRN PRN Reason: Nausea &/or Vomiting Stop: 06/27/19 18:08 Metoprolol Succinate (Toprol Xl) 25 mg PO QAM [facility] Stop: 06/27/19 09:14 Last Admin: 05/29/19 07:59 Dose: 25 mg Documented by: Miscellaneous (Order Awaiting Action) 1 ea N/A QS [facility] Stop: 06/27/19 09:29 Last Admin: 05/29/19 10:58 Dose: Not Given Documented by: Miscellaneous (Order Awaiting Action) 1 ea N/A QS [facility] Stop: 06/27/19 09:29 Last Admin: 05/29/19 10:58 Dose: Not Given Documented by: Miscellaneous Information (Consult) 1 ea N/A UD PRN PRN Reason: Consult Stop: 06/27/19 09:19 Naloxone HCl (Narcan) 0.1 mg IV Q5M PRN PRN Reason: Oversedation/respiratory dep Stop: 06/27/19 18:08 Ondansetron HCl (Zofran Tab) 4 mg PO Q6H PRN PRN Reason: Nausea Stop: 06/27/19 18:08 Ondansetron HCl (Zofran) 4 mg IV Q6H PRN PRN Reason: Nausea &/or Vomiting Stop: 06/27/19 18:08 Oxycodone HCl (Roxicodone Immediate Rel) 5 - 10 mg PO Q4H PRN PRN Reason: Pain Stop: 06/11/19 18:08 Pantoprazole Sodium (Protonix) 40 mg PO DAILY [facility] Stop: 06/28/19 08:59 Last Admin: 05/29/19 07:59 Dose: 40 mg Documented by: Pneumococcal Polyvalent Vaccine (Pneumococcal Vacc, Do Not Administer) 1 ea N/A PRN PRN PRN Reason: Notification Stop: 06/27/19 18:08 Polyethylene Glycol (Miralax Powder Packet) 17 gm PO Q6 [facility] Stop: 06/28/19 11:59 Last Admin: 05/29/19 15:11 Dose: 17 gm Documented by: Prednisone (Prednisone) 10 mg PO DAILY [facility] Stop: 06/28/19 08:59 Last Admin: 05/29/19 07:59 Dose: 10 mg Documented by: Senna/Docusate Sodium (Senokot S) 2 tab PO HS [facility] Stop: 06/27/19 20:59 Last Admin: 05/28/19 22:06 Dose: 2 tab Documented by: Sodium Biphosphate/Sodium Phosphate (Fleet Enema) 132 ml SD ONE PRN PRN Reason: Constipation Stop: 06/27/19 18:08 Tramadol HCl (Ultram) 50 - 100 mg PO Q4H PRN PRN Reason: Moderate-Severe pain Stop: 06/27/19 18:08 PG Care Time/CCT Total # of Minutes Spent Total Time Spent with Patient: Total time spent is greater than 50% in coordina tion of care (as documented) at patient's floor/unit and/or counseling patient: Resident Activity Tracking Resident Involvement: Resident Care Provided Care Provided: Adult Hospital Medicine
[2019-05-29] MEDS: LACTATED RINGER'S 1,000 ML IV SCH ×2 (16:54→20:15)
[2019-05-29] MEDS: DOCUSATE SODIUM/SENNA 50/8.6MG TAB PO SCH (20:16)
[2019-05-30] MEDS: POLYETHYLENE (MIRALAX) 17 GM PACK PO SCH ×5 (00:08→23:22)
[2019-05-30] MEDS ORDERED: VANCOMYCIN TROUGH ONE (05:30)
[2019-05-30 06:15] LABS: Hematocrit (blood only) 35.5 % (42-52); Mean Corpuscular Hemoglobin 25.5 pg (25-34); Mean Corpuscular Volume 82.2 fL (80-100); Mean Platelet Volume 8.6 fL (7.4-10.4); Platelet Count 258 K/uL (130-400); Red Blood Count 4.32 M/uL (4.7-6.1); White Blood Count 52.93 K/uL (4.8-10.8)
[2019-05-30] MEDS: VANCOMYCIN HCL 1,000 MG in SODIUM CHLORIDE 0.9% 250 ML IV SCH (06:28)
[2019-05-30 06:44] LABS: Basophils # (auto) 0.06 K/uL (0-0.2); Basophils % (auto) 0.1 %; Eosinophils % (auto) 0.2 %
[2019-05-30 06:47] LABS: BUN Creatinine Ratio 14.5 (10-20); Calcium 8.5 mg/dl (8.5-10.1); Creatinine Clr Calc Pharmacy 64.9 ml/min; Est GFR (African American) 101.1; Est GFR (Non-African American) 87.2; Potassium 3.8 mmol/L (3.5-5.1)
[2019-05-30] MEDS: predniSONE 10 MG TABLET PO SCH (07:50)
[2019-05-30] MEDS: ATORVASTATIN 40 MG TAB PO SCH (07:51)
[2019-05-30] MEDS: PANTOprazole 40 MG TAB PO SCH (07:51)
[2019-05-30] MEDS: BUDESONIDE/FORMOTEROL FUMARATE 160/4.5 60 PUFFS/INHALER INH SCH ×2 (07:51→20:51)
[2019-05-30] MEDS: ASPIRIN 81 MG ECTAB PO SCH (07:51)
[2019-05-30] MEDS: METOPROLOL SUCC 25MG EXT REL TAB PO SCH (07:51)
[2019-05-30] MEDS: ACETAMINOPHEN 1,000 MG/100 ML VIAL IV PRN ×2 (07:56→20:55)
--- NOTE | 2019-05-30 09:54 | Pharmacy Report ---
Pharmacy Abx Dose Short Note - Date of Service May 30, 2019 - Assessment & Plan Assessment 73 year old M receiving empiric vancomycin for treatment of possible cervical abscess/bone joint infection. Of note, orthopedic note from 05/29, "no evidence of infection during procedure". Plan is to d/c antibiotics after 48 hours of no growth on cultures. Day # 3 of antimicrobial therapy. 05/28: Neck culture shows no growth to date (gram stain - no organisms seen) Plan Vancomycin * Trough level of 7.8 mcg/mL is subtherapeutic * Change to 1000 mg IV every 10 hours * Goal trough level for osteomyelitis : 15 to 20 mcg/mL * Trough or random level ordered for: 05/31/19 @1130 prior to 4th dose of new regimen * Will continue to follow cultures Pharmacy will continue to follow and will adjust dose/frequency as necessary. Thank you.
--- NOTE | 2019-05-30 09:57 | Orthopedic Progress Note ---
Date of Service May 30, 2019 Assessment & Plan (1) Hematoma following procedure: At this time we will maintain the ALAN drain until tomorrow. Most likely have this removed tomorrow. Hopefully he will be ready for discharge Saturday or Saturday per medical recommendation. Present on Admission?: Yes Subjective Patient swelling is steadily improving. He has no discomfort at this time. Physical Exam Physical Exam: On exam dressings in place drain is still functional. Is good strength testing. Appears comfortable. Results & Data Vital Signs (Past 12 Hours) Vital Signs Temp Pulse Pulse Resp BP Pulse Ox 05/30/19 07:40 37.0 C 69 18 152/86 H 98 05/30/19 07:32 62 18 97 05/30/19 04:31 37.1 C 72 20 131/82 96 05/30/19 03:10 83 16 96 05/29/19 23:38 36.9 C 65 16 132/78 96 05/29/19 23:05 79 16 97
[2019-05-30] MEDS ORDERED: bisacodyL 10 MG SUPP PR PRN (15:48)
[2019-05-30] MEDS ORDERED: VANCOMYCIN HCL 1,000 MG in SODIUM CHLORIDE 0.9% 250 ML IV SCH (16:00)
--- NOTE | 2019-05-30 16:08 | Family Medicine Progress Note ---
Date of Service May 30, 2019 Assessment & Plan (1) Hematoma following procedure: Mr. Prince is a pleasant 73 year old male with hx of cervical stenosis s/p ACDF on 05/25, emphysema, O2 dependent, transferred from [facility] with concerns for a post-op abscess in the area of his recent ACDF C3-C6 on May 25. 1. Post-op hematoma causing dysphagia: - Postop from I&D of hematoma anterior cervical spine -Cultures remain negative, no evidence of abscess formation during surgery - DCd vancomycin after 48 hours of no growth on cultures 2) Pulmonary emphysema - not in exacerbation, not wheezing on physical exam - chronic O2 use. 2L qhs and previously required 2-3L NC during the day during his recent inpatient stay - continue chronic home prednisone 10mg - continue home symbicort, albuterol q4h prn dyspnea/wheezing (3) Chronic lymphocytic leukemia: - baseline WBCs 20-30K - likely the increase is related to recent steroids as well as recent surgery. Given negative culture results, and and lack of stigmata suggestive of infection on clinical exam and during operative inspection, infection unlikely - continue to trend - follow up with hematology as an outpatient (4) Anemia: -Stable, follow (5) CAD (coronary artery disease): - no acute cardiac symptoms - continue home ASA 81mg, lipitor 80mg, Toprol XL 25mg - nitro prn chest pain (6) Acid reflux disease - protonix (at home uses omeprazole 40mg) FENa:Clear liquid Code Status: Full DVT PPX: SCDs/ASA PT/OT: Consulted Dispo: Hopefully DC 05/31 or Supervising Physician Co-Signing Physician Notes Attending attestation Pt seen and examined in concert with Dr. Patton. In agreement with the documented findings as noted in the resident documentation with any exceptions or additions as noted here. Mild soreness at right neck incision site which is improved. Improved odynophagia. On examination, S1/S2 nl RRR no MCG. Diffusely decreased breath sounds, stable. Abd NT/ND BS+ve. Neck dressing C/D/I, drain w/ serosanguinous output. Neck pain s/p ACDF w/ collection s/p evacuation - Cultures negative x 48 hours today. D/C IV abx. Pain mgmt per surgical recommendation. Gentle IVF, likely d/c tomorrow. Emphysema with chronic hypoxic respiratory failure (3L qHS) - wean O2 requirement as tolerated. Continue present regimen. Else see resident documentation as noted. Subjective Feels well today. No complaints. Stated he was able to swallow all pills, even large ones, with minimal difficulty. Review of Systems Review of Systems: All systems reviewed & are unremarkable except as noted in HPI & below Constitutional: no fever, no body aches and no fatigue Ear, Nose, Mouth, Throat: + dysphagia and + pain with swallowing; no ear pain Respiratory: no cough and no dyspnea Cardiovascular: no chest pain Gastrointestinal: no abdominal pain, no nausea and no vomiting Physical Exam Physical Exam: General: Well-appearing male, in no significant distress. HEENT: No scleral icterus, PERRLA, neck supple; R-sided wound drain in situ. Cardiovascular: Regular rate and rhythm, no extra sounds. Pulmonary: Clear to auscultation bilaterally, normal work of breathing. Abdomen: Soft, nontender, nondistended, positive bowel sounds. Musculoskeletal: Atraumatic, no peripheral edema. Neurologic: Patient awake alert and oriented x 3, full strength in all 4 extremities. Cranial nerves 2 through 12 grossly intact. Skin: Warm, dry, no rash Results & Data Vital Signs (Past 12 Hours) Vital Signs Temp Pulse Pulse Pulse Resp BP Pulse Ox 05/30/19 15:34 72 16 98 05/30/19 15:21 98.2 F 73 18 134/78 97 05/30/19 11:13 98.6 F 69 16 152/86 H 98 05/30/19 11:09 81 16 80 L 05/30/19 08:00 65 05/30/19 07:40 98.6 F 69 18 152/86 H 98 05/30/19 07:32 62 18 97 05/30/19 04:31 98.8 F 72 20 131/82 96 Laboratory Results 05/30/19 05/30/19 05/30/19 Range/Units 05:53 05:53 05:53 WBC 52.93 H* D (4.8-10.8) K/uL RBC 4.32 L (4.7-6.1) M/uL Hgb 11.0 L (14.0-18.0) g/dL Hct 35.5 L (42-52) % MCV 82.2 (80-100) fL MCH 25.5 (25-34) pg MCHC 31.0 L (32-36) g/dL RDW Std Deviation 51.0 H (36.4-46.3) fL RDW Coeff of Vincent 17.0 H (11.5-14.5) % Plt Count 258 (130-400) K/uL MPV 8.6 (7.4-10.4) fL Eos % (Auto) 0.2 % Baso % (Auto) 0.1 % Eos # (Auto) 0.10 (0-0.5) K/uL Baso # (Auto) 0.06 (0-0.2) K/uL Sodium 139 (136-145) mmol/L Potassium 3.8 (3.5-5.1) mmol/L Chloride 102 (98-107) mmol/L Carbon Dioxide 33 H (21-32) mmol/L Anion Gap 4.0 (3-11) BUN 13 (7-18) mg/dl Creatinine 0.86 (0.6-1.4) mg/dl Est Cr Clr Drug Dosing 64.9 ml/min Est GFR ( Amer) 101.1 Est GFR (Non-Af Amer) 87.2 BUN/Creatinine Ratio 14.5 (10-20) Glucose 87 (70-99) mg/dl Calcium 8.5 (8.5-10.1) mg/dl Vancomycin Trough 7.8 (See Comment) mcg/ml Medications Administered Current Inpatient Medications Acetaminophen (Tylenol) 1,000 mg PO Q8H PRN PRN Reason: MILD Pain Rating 1,2,3 Stop: 06/27/19 18:08 Al Hydrox/Mg Hydrox/Simethicone (Maalox) 30 ml PO Q6H PRN PRN Reason: Dyspepsia Stop: 06/27/19 18:08 Albuterol (Ventolin Hfa) 2 puffs INH Q4H PRN PRN Reason: Wheezing Stop: 06/27/19 09:06 Aspirin (Ecotrin Ectab) 81 mg PO QAM [facility] Stop: 06/28/19 08:59 Last Admin: 05/30/19 07:51 Dose: 81 mg Documented by: Atorvastatin Calcium (Lipitor) 80 mg PO DAILY [facility] Stop: 06/28/19 08:59 Last Admin: 05/30/19 07:51 Dose: 80 mg Documented by: Bisacodyl (Dulcolax) 10 mg CO DAILY PRN PRN Reason: Constipation Stop: 06/29/19 15:47 Budesonide/Formoterol Fumarate (Symbicort 160mcg/4.5mcg) 2 puffs INH BID JOSH Stop: 06/27/19 09:29 Last Admin: 05/30/19 07:51 Dose: 2 puffs Documented by: Diphenhydramine HCl (Benadryl Capsule) 25 mg PO Q6H PRN PRN Reason: Allergic Rhinitis/Insomnia Stop: 06/27/19 18:08 Epinephrine (Raccemic Epinephrine 2.25% 0.5ml) 0.5 ml INH NOW PRN PRN Reason: if stridor present Stop: 06/27/19 18:08 Famotidine (Pepcid) 20 mg PO Q12H PRN PRN Reason: Dyspepsia Stop: 06/27/19 18:08 Hydromorphone HCl (Dilaudid) 0.5 mg IV Q3H PRN PRN Reason: moderate pain (scale 4-6) Stop: 06/11/19 18:08 Hydroxyzine HCl (Vistaril) 25 mg PO Q8H PRN PRN Reason: Anxiety Stop: 06/27/19 18:08 Acetaminophen (Ofirmev) 1,000 mg in 100 mls @ 400 mls/hr IV Q8H PRN PRN Reason: pain rating 1-3 Stop: 06/27/19 18:08 Last Infusion: 05/30/19 08:11 Dose: Infused Documented by: Lorazepam (Ativan) 0.5 mg in 1 mls @ 1 mls/min IV Q8H PRN PRN Reason: Sedation/Anxiety Stop: 06/27/19 18:08 Dexamethasone Sodium Phosphate (8 mg/ Syringe) 2 mls @ 1 mls/min IV NOW PRN PRN Reason: stridor Stop: 06/27/19 18:08 Promethazine HCl 12.5 mg/ (Sodium Chloride) 50.5 mls @ 202 mls/hr IV Q6H PRN PRN Reason: Nausea &/or Vomiting Stop: 06/27/19 18:08 Vancomycin HCl 1,000 mg/ (Sodium Chloride) 270 mls @ 125 mls/hr IV Q10H JOSH; Protocol Stop: 07/11/19 15:59 Last Admin: 05/30/19 16:14 Dose: 125 mls/hr Documented by: Influenza Virus Vaccine Quadrival (Flu Vaccine, Do Not Administer) 1 ea N/A PRN PRN PRN Reason: Notification Stop: 06/27/19 18:08 Lorazepam (Ativan) 0.5 mg PO Q8H PRN PRN Reason: sedation/anxiety Stop: 06/27/19 18:08 Magnesium Hydroxide (Milk Of Magnesia) 30 ml PO Q24H PRN PRN Reason: Constipation Stop: 06/27/19 18:08 Metoclopramide HCl (Reglan) 10 mg IV Q6H PRN PRN Reason: Nausea &/or Vomiting Stop: 06/27/19 18:08 Metoprolol Succinate (Toprol Xl) 25 mg PO QAM JOSH Stop: 06/27/19 09:14 Last Admin: 05/30/19 07:51 Dose: 25 mg Documented by: Miscellaneous (Order Awaiting Action) 1 ea N/A QS JOSH Stop: 06/27/19 09:29 Last Admin: 05/30/19 16:14 Dose: Not Given Documented by: Miscellaneous (Order Awaiting Action) 1 ea N/A QS [facility] Stop: 06/27/19 09:29 Last Admin: 05/30/19 16:14 Dose: Not Given Documented by: Miscellaneous Information (Consult) 1 ea N/A UD PRN PRN Reason: Consult Stop: 06/27/19 09:19 Naloxone HCl (Narcan) 0.1 mg IV Q5M PRN PRN Reason: Oversedation/respiratory dep Stop: 06/27/19 18:08 Ondansetron HCl (Zofran Tab) 4 mg PO Q6H PRN PRN Reason: Nausea Stop: 06/27/19 18:08 Ondansetron HCl (Zofran) 4 mg IV Q6H PRN PRN Reason: Nausea &/or Vomiting Stop: 06/27/19 18:08 Oxycodone HCl (Roxicodone Immediate Rel) 5 - 10 mg PO Q4H PRN PRN Reason: Pain Stop: 06/11/19 18:08 Pantoprazole Sodium (Protonix) 40 mg PO DAILY [facility] Stop: 06/28/19 08:59 Last Admin: 05/30/19 07:51 Dose: 40 mg Documented by: Pneumococcal Polyvalent Vaccine (Pneumococcal Vacc, Do Not Administer) 1 ea N/A PRN PRN PRN Reason: Notification Stop: 06/27/19 18:08 Polyethylene Glycol (Miralax Powder Packet) 17 gm PO Q6 JOSH Stop: 06/28/19 11:59 Last Admin: 05/30/19 17:32 Dose: 17 gm Documented by: Prednisone (Prednisone) 10 mg PO DAILY JOSH Stop: 06/28/19 08:59 Last Admin: 05/30/19 07:50 Dose: 10 mg Documented by: Senna/Docusate Sodium (Senokot S) 2 tab PO HS JOSH Stop: 06/27/19 20:59 Last Admin: 05/29/19 20:16 Dose: 2 tab Documented by: Sodium Biphosphate/Sodium Phosphate (Fleet Enema) 132 ml CO ONE PRN PRN Reason: Constipation Stop: 06/27/19 18:08 Tramadol HCl (Ultram) 50 - 100 mg PO Q4H PRN PRN Reason: Moderate-Severe pain Stop: 06/27/19 18:08 PG Care Time/CCT Total # of Minutes Spent Total Time Spent with Patient: Total time spent is greater than 50% in coordination of care (as documented) at patient's floor/unit and/or counseling patient: Resident Activity Tracking Resident Involvement: Resident Care Provided Care Provided: Adult Hospital Medicine
[2019-05-30] MEDS: DOCUSATE SODIUM/SENNA 50/8.6MG TAB PO SCH (20:51)
[2019-05-31] MEDS: POLYETHYLENE (MIRALAX) 17 GM PACK PO SCH ×2 (05:05→11:21)
[2019-05-31 06:42] LABS: Hematocrit (blood only) 35.9 % (42-52); Mean Corpuscular Hemoglobin 25.8 pg (25-34); Mean Corpuscular Hgb Conc 30.6 g/dL (32-36); Mean Corpuscular Volume 84.3 fL (80-100); Mean Platelet Volume 9.1 fL (7.4-10.4); Platelet Count 259 K/uL (130-400); RDW Coefficient of Variation 17.2 % (11.5-14.5); RDW Standard Deviation 52.2 fL (36.4-46.3); Red Blood Count 4.26 M/uL (4.7-6.1); White Blood Count 50.53 K/uL (4.8-10.8)
[2019-05-31 07:11] LABS: Creatinine Clr Calc Pharmacy 70.6 ml/min; Est GFR (African American) 104.7; Est GFR (Non-African American) 90.3
[2019-05-31] MEDS: ASPIRIN 81 MG ECTAB PO SCH (08:02)
[2019-05-31] MEDS: METOPROLOL SUCC 25MG EXT REL TAB PO SCH (08:02)
[2019-05-31] MEDS: predniSONE 10 MG TABLET PO SCH (08:02)
[2019-05-31] MEDS: PANTOprazole 40 MG TAB PO SCH (08:02)
[2019-05-31] MEDS: ATORVASTATIN 40 MG TAB PO SCH (08:02)
[2019-05-31] MEDS: BUDESONIDE/FORMOTEROL FUMARATE 160/4.5 60 PUFFS/INHALER INH SCH (08:03)
[2019-05-31 08:06] LABS: Basophils # (auto) 0.05 K/uL (0-0.2); Basophils % (auto) 0.1 %; Echinocytes 1+; Eosinophils # (auto) 0.24 K/uL (0-0.5); Eosinophils % (auto) 0.5 %; Immature Granulocytes # (auto) 0.18 K/uL (0.00-0.02); Immature Granulocytes % (auto) 0.4 %; Lymphocytes # (auto) 39.65 K/uL (1.2-3.4); Lymphocytes % (auto) 78.5 %; Monocytes # (auto) 2.32 K/uL (0.11-0.59); Monocytes % (auto) 4.6 %; Neutrophils # (auto) 8.09 K/uL (1.4-6.5); Neutrophils % (auto) 15.9 %; Smudge Cells Present
[2019-05-31] MEDS: ACETAMINOPHEN 1,000 MG/100 ML VIAL IV PRN (08:07)
[2019-05-31] MEDS: LACTATED RINGER'S 1,000 ML IV SCH (09:01)
[2019-05-31] MEDS ORDERED: POTASSIUM CHLORIDE 20 MEQ TABCR PO STA (10:35)
--- NOTE | 2019-05-31 10:53 | Orthopedic Progress Note ---
Date of Service May 31, 2019 Assessment & Plan (1) Hematoma following procedure: I did remove his drain this morning. We will advance his diet. He is stable from orthopedic standpoint for discharge. Present on Admission?: Yes Subjective Patient's pain is well controlled. Swelling markedly improved. He is quite comfortable at this time. Physical Exam Physical Exam: On exam is good strength testing appears comfortable. Results & Data Vital Signs (Past 12 Hours) Vital Signs Temp Pulse Pulse Pulse Resp BP Pulse Ox 05/31/19 10:42 75 16 95 05/31/19 08:00 36.8 C 77 69 18 162/74 H 95 05/31/19 07:25 72 18 95 05/31/19 04:11 36.7 C 77 19 145/86 H 98 05/31/19 03:16 67 18 98 05/30/19 23:41 36.8 C 75 19 143/86 H 97
[2019-05-31] MEDS ORDERED: VANCOMYCIN TROUGH SCH (11:30)
--- NOTE | 2019-05-31 15:27 | Discharge Summary ---
Date of Service May 31, 2019 Admission HPI Per Admitting Provider Mr. Mendez is a 73 year old male, hx of CLL, emphysema, anemia, CAD and recent ACDF with Dr. Torres here for evaluation of a possible hematoma or abscess near his surgical site. He underwent ACDF C3-6 on May 25 here at [facility]. He was doing well, but started having pain in the anterior and posterior neck the evening of discharge. Pain became worse and he was unable to sleep. Denies numbness or new weakness in the upper extremities. Denies fevers, chills malaise. Did not use any of the post-op pain medications that were prescribed on discharge. In [place]: - CT Head without acute findings. - CT Cervical Spine: small foci of gas within the soft tissue of the anterior neck, surgical hardware - MRI Cervical Spine: 1 x 6.7 x 6.3 rim enhancing collection near the anterior margin of vertebral column that abuts the surgical hardware. - WBC 97 - received IV vanc and cefepime Admission Exam Per Admitting Provider Constitutional: WD/WN, vitals as above well developed and + thin; no acute distress, not ill appearing and no altered mental status Eyes: PERRL, conjunctivae normal, anicteric sclerae ENMT: external ear and nose normal, oropharynx normal Neck: normal visual inspection Large dressing to the right anterior neck Respiratory: normal respiratory effort, lungs clear to auscultation Cardiovascular: RRR, no murmur, no edema Gastrointestinal (Abdomen): normal bowel sounds, soft, nontender, no hepatosplenomegaly Musculoskeletal: Spine: + limited cervical ROM Skin: no rashes, warm and dry Dressing to the anterior right neck is clean and in tact. Neurologic: moves all extremities 5/5 cardiovascular tech strength, light touch in tact in C5-7 bilaterally. Principal Diagnosis Hematoma after procedure Discharge Exam Constitutional WD/WN, vitals as above well developed and + thin; no acute distress, not ill appearing and no altered mental status Eyes PERRL, conjunctivae normal, anicteric sclerae ENMT external ear and nose normal, oropharynx normal Neck normal visual inspection Respiratory normal respiratory effort, lungs clear to auscultation Cardiovascular RRR, no murmur, no edema Gastrointestinal (Abdomen) normal bowel sounds, soft, nontender, no hepatosplenomegaly Musculoskeletal Spine: + limited cervical ROM Skin no rashes, warm and dry Neurologic moves all extremities Psychiatric Orientation: alert and oriented x 3 Discharge Data Allergies Allergy/AdvReac Type Severity Reaction Status Date / Time montelukast [From Singulair] Allergy GETS URI Verified 05/25/19 06:34 Consultations 05/28/19 10:15 Consult Orthopedic Surgery Routine Procedures Performed Operation Date: 05/28/19 15:30 Actual Procedures p Incision and Drainage Cervical Spine(Not Applicable) - Sunday Torres, Ordered Studies 05/28/19 14:30 FL fluoroscopy <1hr Routine 05/28/19 14:32 FL cervical 2-3V Routine Hospital Course (1) Hematoma following procedure: Mr. Prince is a pleasant 73 year old male with hx of cervical stenosis s/p ACDF on 05/25, emphysema (O2 dependent), transferred from [facility] with dysphagia s/p ACDF C3-C6 on May 25. 1. Post-op hematoma causing dysphagia: - Postop from I&D of hematoma anterior cervical spine -Cultures remain negative, no evidence of abscess formation during surgery - DCd vancomycin after 48 hours of no growth on cultures - Drain placed and subsequently removed on 05/31 - Dysphagia improving greatly, patient tolerating solid foods on day of discharge - Continue outpatient follow up as planned with Dr. Torres. Continue with C- collar. 2. Pulmonary emphysema - not in exacerbation, not wheezing on physical exam - chronic O2 use. 2L qhs and previously required 2-3L NC during the day during his recent inpatient stay - continue chronic home prednisone 10mg - continue home regimen - 2 step confirms he requires 2L oxygen on exertion; script submitted to case management 3. Chronic lymphocytic leukemia: - baseline WBCs 20-30K - likely inpatient increase (to 50K) r/t recent steroids and recent surgery. - Given negative culture results, lack of s/s of infection on exam and during operative inspection, infection unlikely - follow up with hematology as an outpatient 4. Anemia: -Stable, follow 5. CAD (coronary artery disease): - no acute cardiac symptoms - continue home ASA 81mg, lipitor 80mg, Toprol XL 25mg - nitro prn chest pain 6. Acid reflux disease - Continue home omeprazole 40mg Code Status: Full Total Time Total Time Spent Total Time Spent (In Minutes): see attending attestation Discharge Plan Discharge Items Patient Disposition: Home - Self-Care Reason For Visit: SPINAL ABSCESS FROM C3-C6 FUSION Discharge Diagnosis: Hematoma s/p ACDF, resolved Activity: Per Instructions section Non-emergency contact: Primary Care Provider and Surgeon Call non-emergency contact if: you have any medication questions, your symptoms worsen, your pain is not controlled and your temperature is above 101 Follow-up/Referrals: Bjorn Sutherland MD [Primary Care Provider] - Diet: Regular Addtl Attending Provider Instructions: During this admission, you were evaluated for a complication from your recent disc fusion in your neck. This was found to be a hematoma, or collection of blood, which is not an uncommon complication from this procedure. There was a concern that this was originally an infection, but Dr. Torres did not observe signs of infection, and the wound culture that was taken has not grown any infection to date. You will not be discharged on any antibiotics. We recommend using oxygen during the day when you exert yourself (in addition to nighttime) due to your shortness of breath and desaturation while exerting yourself. Do this until you can be seen by your PCP to discuss further. Continue to wear your C-collar and follow up with Dr. Torres as planned. Please follow up with your PCP within 2 weeks of leaving the hospital. Should your symptoms return or worsen, do not hesitate to return to the ER. Pending Studies at Discharge: No Stand-Alone Forms: My [facility] Medications and DC Order Prescriptions: Continued hydroxyzine HCl 25 mg tablet 25 mg PO HS Qty: 30 RF: 5 albuterol sulfate 2.5 mg /3 mL (0.083 %) solution for nebulization 2.5 mg INH Q4H PRN (Reason: shortness of breath or wheezing) Qty: 180 RF: 0 nitroglycerin 0.4 mg tablet, sublingual 0.4 mg SL Q5M PRN (Reason: chest pain) Qty: 25 RF: 0 Symbicort 160-4.5 mcg/actuation HFA aerosol inhaler 2 puffs INH BID Qty: 10.2 RF: 3 ipratropium-albuterol 0.5 mg-3 mg(2.5 mg base)/3 mL solution for nebulization 3 ml inhalation ONCE Qty: 3 RF: 0 benzonatate [Tessalon Perles] 100 mg capsule 100 mg PO TID PRN (Reason: cough) Qty: 30 RF: 0 prednisone 10 mg tablet 10 mg PO DAILY Qty: 14 RF: 0 atorvastatin 80 mg Tablet 80 mg PO DAILY RF: 0 aspirin [Adult Low Dose Aspirin] 81 mg tablet,delayed release (DR/EC) 81 mg PO QAM RF: 0 meclizine 25 mg tablet 25 mg PO TID PRN (Reason: Vertigo) RF: 0 zafirlukast [Accolate] 20 mg tablet 20 mg PO BIDM RF: 0 metoprolol succinate 25 mg tablet extended release 24 hr 25 mg PO QAM RF: 0 Incruse Ellipta 62.5 mcg/actuation blister with device 1 puffs INH QAM RF: 0 omeprazole 40 mg capsule,delayed release(DR/EC) 40 mg PO QAM RF: 0 albuterol sulfate [Ventolin HFA] 90 mcg/actuation HFA aerosol inhaler 2 puff inhalation Q4H PRN (Reason: Wheezing) RF: 0 oxycodone 5 mg Tablet 5 mg PO Q4H PRN (Reason: pain) Qty: 20 RF: 0 Discontinued azithromycin [Zithromax Z-Jose] 250 mg Tablet 250 mg PO UD RF: 0 Discharge Orders: Discharge Order (Routine); Ordered 05/31/19 Ordered By: Deirdre Patton Admission Data Admit Date/Time: 05/28/19 08:19 Attending Provider: Daquan Ferrari Admit Provider: Sunday Torres Primary Care Provider: Bjorn Sutherland Other Providers: Rustam Staton ; Sunday Torres Other Interventions: Discharge Summary Assessment (RN) Last Done: 05/31/19 15:44 DC Date/Time DO NOT enter until pt leaves facility: 05/31/19 16:48 Supervising Physician Co-Signing Physician Notes Attending attestation Pt seen and examined in concert with Dr. Patton. In agreement with the documented findings as noted in the resident documentation with any exceptions or additions as noted here. Continued improvement in right neck pain at incision site. Tolerating full diet without complaint. Reports no f/c, n/v, OMER, lightheadedness, worsening SOB, cough. On examination, S1/S2 nl RRR no MCG. Persistent diffusely decreased breath sounds. Abd NT/ND BS+ve. Neck dressing C/D/I, drain removed. Neck pain s/p ACDF w/ collection s/p evacuation - Cultures negative x 48 hours, received 48 hrs abx. Discharge to outpatient follow up with Dr. Torres. Emphysema with chronic hypoxic respiratory failure (3L qHS) - increased O2 requirement postoperatively without change in symptoms at rest. Has O2 established at home and will likely return to regular baseline with gradual wean. Else see resident documentation as noted. Resident Activity Tracking Resident Involvement: Resident Care Provided Care Provided: Adult [facility] Medicine
== END 2019-05-31 16:48 | disposition home or self-care (01) | DRG 982 ==
LOC: SUATTDRO 08:19 → 2S 08:19